=== PATIENT | female | born 1970 | race African-American/Black ===

== ENCOUNTER 2016-07-25 23:57 | Emergency (ER) | payer MEDICAID ==
[2016-07-26] MEDS ORDERED: AMIODARONE HCL INJ 150 MG/3 ML VIAL IV ONE ×2 (00:05→00:19)
[2016-07-26] MEDS ORDERED: LIDOCAINE 2% INJ-PF (100 MG/5 ML) SYRINGE ONE (00:13)
[2016-07-26] MEDS ORDERED: KETAMINE HCL INJ 500 MG/10 ML VIAL ONE ×2 (00:20→02:42)
[2016-07-26] MEDS ORDERED: PROPOFOL 100 ML IV ONE (00:29)
[2016-07-26 01:06] LABS: ABSOLUTE EOSINOPHILS # (AUTO) 0.2 10^3/uL (0.0-0.6); ABSOLUTE MONOCYTES (AUTO) 1.2 10^3/uL (0.1-1.4); ABSOLUTE NEUT (AUTO) 6.2 10^3/uL (1.7-8.2); BASOPHILS % (AUTO) 0.3 % (0-2); EOSINOPHILS % (AUTO) 1.3 % (0-6); HEMATOCRIT 40.3 % (36.0-47.0); HEMOGLOBIN 12.3 g/dL (12.0-15.5); HGB HCT DIFFERENCE -3.4; LYMPHOCYTES % (AUTO) 44.1 % (13-45); MEAN CORPUSCULAR HEMOGLOBIN 21.3 pg (27.0-33.4); MEAN CORPUSCULAR HGB CONC 30.6 g/dL (32.0-36.0); MEAN CORPUSCULAR VOLUME 70 fl (80-97); MONOCYTES % (AUTO) 8.9 % (3-13); RED BLOOD COUNT 5.77 10^6/uL (3.72-5.28); RED CELL DISTRIBUTION WIDTH 21.6 % (11.5-14.0); SEGMENTED NEUTROPHILS % (AUTO) 45.4 % (42-78); WHITE BLOOD COUNT 13.6 10^3/uL (4.0-10.5)
[2016-07-26 01:12] LABS: PROTHROMBIN TIME 30.9 SEC (11.4-15.4)
[2016-07-26 01:13] LABS: PARTIAL THROMBOPLASTIN TIME 47.1 SEC (23.5-35.8)
[2016-07-26 01:24] LABS: ALANINE AMINOTRANSFERASE 181 U/L (9-52); ALBUMIN 4.4 g/dL (3.5-5.0); ALKALINE PHOSPHATASE 186 U/L (38-126); ASPARTATE AMINO TRANSFERASE 367 U/L (14-36); BILIRUBIN,TOTAL 1.1 mg/dL (0.2-1.3); BLOOD UREA NITROGEN 10 mg/dL (7-20); CHLORIDE 109 mmol/L (98-107); CREATINE KINASE 103 U/L (30-135); CREATININE RESULT 0.98 mg/dL (0.52-1.25); GLUCOSE 343 mg/dL (75-110); TOTAL PROTEIN 8.3 g/dL (6.3-8.2)
--- NOTE | 2016-07-26 01:27 | ER Document Report ---
ED General - General Stated Complaint: RESPIRATORY DISTRESS Cannot obtain history due to: Unstable vital signs Notes: Patient is a 46-year-old female with a past history of CHF status post bed placement 2005 who presents with generalized fatigue, vomiting and diaphoresis. EMS noted patient to be in ventricular tachycardia and transported to the emergency department. No intervention was performed. At time of arrival patient is hemodynamically unstable and history is otherwise limited secondary to her unstable status. TRAVEL OUTSIDE OF THE [place] IN LAST 30 DAYS: No - Related Data Allergies/Adverse Reactions: amoxicillin [Amoxicillin] Allergy (Verified 09/15/15 22:08) Penicillins Allergy (Verified 09/15/15 22:08) Past Medical History - General Information source: Patient, Emergency Med Personnel - Social History Smoking Status: Never Smoker Frequency of alcohol use: None Drug Abuse: None Lives with: Family Family History: Reviewed & Not Pertinent - Past Medical History Cardiac Medical History: Reports: Hx Atrial Fibrillation, Hx Congestive Heart Failure, Hx Hypercholesterolemia Past Surgical History: Reports: Hx Abdominal Surgery - CHOLECYSTECTOMY, Hx Cardiac Surgery - LVAD, Hx Section, Hx Cholecystectomy, Hx Hysterectomy , Hx Internal Defibrillator - secondary to bradycardia, per patient., Hx Pacemaker - Immunizations Immunizations up to date: Yes Hx Diphtheria, Pertussis, Tetanus Vaccination: Yes Review of Systems - Review of Systems Notes: Constitutional: Negative for fever. Positive for fatigue HENT: Negative for sore throat. Eyes: Negative for visual changes. Cardiovascular: Negative for chest pain. Respiratory: Positive for shortness of breath. Gastrointestinal: Negative for abdominal pain, positive for nausea and vomiting Genitourinary: Negative for dysuria. Musculoskeletal: Negative for back pain. Skin: Negative for rash. Neurological: Negative for headaches, weakness or numbness. 10 point ROS negative except as marked above and in HPI. Physical Exam - Vital signs Vitals: Resp BP 30 H 127/108 H 07/26/16 01:36 07/26/16 01:36 Interpretation: Hypotensive, Tachycardic, Tachypneic Notes: PHYSICAL EXAMINATION: GENERAL: Obese, ill in appearance, diaphoretic HEAD: Atraumatic, normocephalic. EYES: Pupils equal round and reactive to light, extraocular movements intact, sclera anicteric, conjunctiva are normal. ENT: nares patent, oropharynx clear without exudates. Moderately dry mucous membranes. NECK: Normal range of motion, supple without lymphadenopathy LUNGS: Breath sounds clear to auscultation bilaterally and equal. No wheezes rales or rhonchi. HEART: VAD hum present. Regular tachycardia. 1+ radial pulses bilaterally ABDOMEN: Soft, nontender, normoactive bowel sounds. No guarding, no rebound. No masses appreciated. EXTREMITIES: Normal range of motion, no pitting or edema. No cyanosis. NEUROLOGICAL: No focal neurological deficits. Moves all extremities spontaneously and on command. PSYCH: Normal mood, normal affect. SKIN: Warm, diaphoretic, normal turgor, no rashes or lesions noted. Course - Re-evaluation Re-evalutation: 0005:Patient arrives in ventricular tachycardia with a left ventricular assist device. Initially patient appeared clinically acceptable without diaphoresis vomiting or altered mental status. Multiple attempts were made at establishing IV access as patient did not have asked the time of arrival. These were unsuccessful so a left humeral intraosseous line was placed. An amiodarone infusion was started after a 150 mg bolus. This is unsuccessful in cardioversion and patient proceeded to become more diaphoretic, have one episode of nonbilious, nonbloody vomitus and her repeat low pressures tipped into the low 60s. At this juncture ketamine was infused through the intraosseous line for procedural sedation for cardioversion. Despite a total of 425 mg of ketamine infused over 5 minutes, patient had minimal sedation despite excellent flush through the IO line with good bone marrow drawback. At this 0.80 mg of propofol were given and patient was noted to have acceptable level of sedation. She was cardioverted at 200 J synchronized with return to a normal sinus rhythm. Her blood pressure was initially in the 50s systolic via manual cuff with a Doppler but after approximately 3-5 minutes from cardioversion, patient return to a systolic of 118. After cardioversion she continued to be somewhat sedated and disassociated from the ketamine. 0040-I have spoken with the photovoltaic fabrication technician at [facility] and updated her on the care of this patient. We did speak prior to cardioversion but had to discontinue this conversation due to the increasing instability of the patient. The patient is now been accepted by Dr. Lala Roberson. Unfortunately we have no availability of critical care transport either via ground air at this time from multiple institutions including [facility]. No hospital within 2 hours deals with bad patient's so there is no other acceptable option other than [facility] or due both of which are almost 3 hours away by ground transport. We are continuing to search for options for emergent ground transport with any septal critical care truck as I do not believe it is safe to send the patient via a local EMS truck. 0120-patient is awake, talking, maintained hemodynamically stable at this time. Awaiting acceptable transportation. Repeat EKG does show a sinus tachycardia with wide QRS complex, wider than prior. Patient has no prior history of hyperkalemia and remains stable at this time 07/26/16 01:43 Potassium has returned and is very elevated at 6.6. This would explain the QRS widening as well as the ventricular tachycardia. Patient has been given 2 g of calcium gluconate. 10 units of IV insulin and 2 Amps of D50 will be administered 07/26/16 02:48 Patient's QRS complexes narrowed at this time, she remains hemodynamically stable. A dose of 40 mg of IV Lasix will also be given to help clear potassium from the system and I also believe this is appropriate given the patient has heart failure and did receive fluids by EMS as well as during her period of hypotension prior to arrival. She remains well in appearance at this time. It appears will not have transportation until approximately 8 AM this morning. 07/26/16 04:27 Patient appears clinically much improved at this time. No significant EKG changes after insulin, glucose, and calcium. Patient was also given Lasix. Uncertain if her initial QRS widening is secondary to hyperkalemia or is simply patient's new baseline. She continues to be stable at this time. Care transferred to Dr. Galvan. - Vital Signs Vital signs: Temp Pulse Resp BP Pulse Ox 14 117/95 H 100 07/26/16 03:36 07/26/16 03:36 07/26/16 03:36 - Laboratory Result Diagrams: 07/26/16 00:40 07/26/16 00:40 Laboratory results interpreted by me: 07/26/16 07/26/16 07/26/16 00:40 00:40 00:40 WBC 13.6 H RBC 5.77 H MCV 70 L MCH 21.3 L MCHC 30.6 L RDW 21.6 H Absolute Lymphocytes 6.0 H PT 30.9 H APTT 47.1 H Sodium 145.1 H Potassium 6.6 H* Chloride 109 H Carbon Dioxide 16 L Anion Gap 20 H Glucose 343 H POC Glucose AST 367 H ALT 181 H Alkaline Phosphatase 186 H Total Protein 8.3 H Urine Glucose (UA) Urine Blood 07/26/16 07/26/16 03:51 04:00 WBC RBC MCV MCH MCHC RDW Absolute Lymphocytes PT APTT Sodium Potassium Chloride Carbon Dioxide Anion Gap Glucose POC Glucose 294 H AST ALT Alkaline Phosphatase Total Protein Urine Glucose (UA) >=500 H Urine Blood SMALL H - Diagnostic Test Radiology reviewed: Image reviewed, Reports reviewed Radiology results interpreted by me: 07/26/16 02:49 Chest x-ray: Cardiomegaly with VAD placement - EKG Interpretation by Me Additional EKG results interpreted by me: 07/26/16 02:49 EKG 1: Ventricular tachycardia rate 164. EKG 2: Regular sinus tachycardia with a wide QRS complex. Critical Care Note - Critical Care Note Total time excluding time spent on procedures (mins): 85 Comments: Critical care time spent obtaining history from patient or surrogate, discussions with consultants, development of treatment plan with patient or surrogate, evaluation of patient's response to treatment, examination of patient , ordering and performing treatments and interventions, ordering and review of laboratory studies, re-evaluation of patient's condition, ordering and review of radiographic studies and review of old charts Discharge - Discharge Clinical Impression: Ventricular tachycardia, Cardiogenic shock, Hyperkalemia Condition: Fair Disposition: [facility]
[2016-07-26 01:33] LABS: CARBON DIOXIDE 16 mmol/L (22-30); SODIUM 145.1 mmol/L (137-145)
[2016-07-26 01:36] LABS: ANION GAP 20 (5-19); CREATINE KINASE MB 0.55 ng/mL (<4.55); TROPONIN I 0.017 ng/mL
[2016-07-26 01:39] LABS: POTASSIUM 6.6 mmol/L (3.6-5.0)
[2016-07-26] MEDS ORDERED: CALCIUM GLUCONATE 1000 MG/10 ML INJ IV ONE ×2 (01:41→01:44)
[2016-07-26] MEDS ORDERED: INSULIN REG, HUMAN 100 UNIT/ML 3 ML VIAL (PYX) IV ONE (01:41)
[2016-07-26] MEDS ORDERED: DEXTROSE 50%-WATER 25 GM/50 ML DISP.SYRIN IV ONE (01:42)
[2016-07-26] MEDS ORDERED: FUROSEMIDE INJ/PF 40 MG/4 ML SDV IV ONE (02:48)
[2016-07-26] MEDS ORDERED: LIDOCAINE 2% INJ-PF (100 MG/5 ML) SYRINGE IV ONE (03:15)
[2016-07-26 04:16] LABS: APPEARANCE,URINE CLEAR; BILIRUBIN,URINE NEGATIVE (NEGATIVE); GLUCOSE, URINE >=500 mg/dL (NEGATIVE); KETONES,URINE NEGATIVE (NEGATIVE); LEUKOCYTE ESTERASE,URINE NEGATIVE (NEGATIVE); NITRITE,URINE NEGATIVE (NEGATIVE); PROTEIN,URINE NEGATIVE (NEGATIVE); URINE SPECIFIC GRAVITY 1.009; UROBILINOGEN,URINE NEGATIVE mg/dL (<2.0)
--- NOTE | 2016-07-26 05:29 | ER Document Report ---
Doctor's Note Notes: 07/26/16 05:28 A serum care patient pending transportation from Dr. Richard introduced myself to the patient at the bedside she is awake alert stable vital signs. Chest if she could have something for pain she describes a pain when I touch her chest she was shocked with electricity sore throat that's appropriate. He denies any shortness of breath. im going to Give her some fentanyl.
[2016-07-26] MEDS ORDERED: FENTANYL CITRATE INJ/PF 100 MCG/2 ML AMPUL ONE (05:32)
[2016-07-26 08:31] VITALS: BP 84/73
[2016-07-26 08:59] LABS: BLOOD UREA NITROGEN 11 mg/dL (7-20); CALCIUM 11.3 mg/dL (8.4-10.2); CHLORIDE 99 mmol/L (98-107); GLUCOSE 246 mg/dL (75-110); SODIUM 138.9 mmol/L (137-145)
[2016-07-26 09:09] LABS: ANION GAP 15 (5-19)
[2016-07-26 09:11] LABS: CARBON DIOXIDE 25 mmol/L (22-30); POTASSIUM 5.3 mmol/L (3.6-5.0)
--- NOTE | 2016-07-26 15:57 | EKG REPORT ---
SEVERITY:- ABNORMAL ECG - SINUS TACHYCARDIA WITH FREQUENT APCs PROBABLE LEFT ATRIAL ABNORMALITY NONSPECIFIC INTRAVENTRICULAR CONDUCTION DELAY : Confirmed by: Alessandra Gutiérrez 26-Jul-2016 15:57:28
--- NOTE | 2016-07-26 15:58 | EKG REPORT ---
SEVERITY:- ABNORMAL ECG - ATRIAL FIBRILLATION NONSPECIFIC INTRAVENTRICULAR CONDUCTION DELAY MINIMAL ST DEPRESSION, INFERIOR LEADS : Confirmed by: Alessandra Gutiérrez 26-Jul-2016 15:57:38
--- NOTE | 2016-07-26 16:00 | EKG REPORT ---
SEVERITY:- ABNORMAL ECG - VENTRICULAR FIBRILLATION/FLUTTER/ POLYMORPHIC VT MULTIFORM VENTRICULAR PREMATURE COMPLEXES RIGHT BUNDLE BRANCH BLOCK : Confirmed by: Alessandra Gutiérrez 26-Jul-2016 15:59:43
== END 2016-07-26 08:45 | disposition short-term general hospital (02) ==
LOC: ER 23:57
DX: I47.2 Ventricular tachycardia (principal); E87.5 Hyperkalemia; I50.9 Heart failure, unspecified; R57.0 Cardiogenic shock; I48.91 Unspecified atrial fibrillation; R53.83 Other fatigue; R11.10 Vomiting, unspecified; R61 Generalized hyperhidrosis; Z88.0 Allergy status to penicillin; Z95.810 Presence of automatic (implantable) cardiac defibrillator; Z95.811 Presence of heart assist device
CPT/HCPCS: 93005; 99291; 99292; 96374; 36415; 82553; 82962; 82550; 85025; 85610; 85730; 80048; 80053; 81001; 84484; 71010; 93010; 36680; J3490; J1815

== ENCOUNTER → 2016-08-04 | Outpatient (CLI) | payer MEDICAID ==
[2016-08-04 13:23] LABS: PROTHROMBIN TIME 22.4 SEC (11.4-15.4)
== END ==
LOC: OD 12:54
PROVIDERS: ATTEND Internal Medicine Advanced Heart Failure and Transplant Cardiology
DX: I50.9 Heart failure, unspecified (principal); Z79.01 Long term (current) use of anticoagulants; Z79.899 Other long term (current) drug therapy; Z95.811 Presence of heart assist device
CPT/HCPCS: 36415; 85610

== ENCOUNTER → 2016-08-16 | Outpatient (CLI) | payer MEDICAID ==
[2016-08-16 18:32] LABS: PROTHROMBIN TIME 20.4 SEC (11.4-15.4)
[2016-08-16 18:35] LABS: ANION GAP 14 (5-19); BLOOD UREA NITROGEN 9 mg/dL (7-20); CALCIUM 9.3 mg/dL (8.4-10.2); CARBON DIOXIDE 26 mmol/L (22-30); CHLORIDE 104 mmol/L (98-107); CREATININE RESULT 0.64 mg/dL (0.52-1.25); GLUCOSE 158 mg/dL (75-110)
== END ==
LOC: OD 17:41
PROVIDERS: ATTEND Internal Medicine Advanced Heart Failure and Transplant Cardiology
DX: Z79.01 Long term (current) use of anticoagulants (principal); Z79.899 Other long term (current) drug therapy; Z95.811 Presence of heart assist device
CPT/HCPCS: 36415; 80048; 85610

== ENCOUNTER → 2016-08-23 | Outpatient (CLI) | payer MEDICAID ==
[2016-08-23 15:02] LABS: PROTHROMBIN TIME 26.6 SEC (11.4-15.4)
[2016-08-23 15:18] LABS: ANION GAP 15 (5-19); BLOOD UREA NITROGEN 10 mg/dL (7-20); CALCIUM 9.6 mg/dL (8.4-10.2); CARBON DIOXIDE 27 mmol/L (22-30); CHLORIDE 100 mmol/L (98-107); CREATININE RESULT 0.72 mg/dL (0.52-1.25); GLUCOSE 158 mg/dL (75-110); POTASSIUM 4.2 mmol/L (3.6-5.0)
== END ==
LOC: OD 14:22
PROVIDERS: ATTEND Internal Medicine Advanced Heart Failure and Transplant Cardiology
DX: I50.9 Heart failure, unspecified (principal); Z79.01 Long term (current) use of anticoagulants; Z79.899 Other long term (current) drug therapy; Z95.811 Presence of heart assist device
CPT/HCPCS: 36415; 80048; 85610

== ENCOUNTER → 2016-09-12 | Outpatient (CLI) | payer MEDICAID ==
[2016-09-12 15:05] LABS: PROTHROMBIN TIME 26.9 SEC (11.4-15.4)
[2016-09-12 15:15] LABS: ANION GAP 13 (5-19); BLOOD UREA NITROGEN 10 mg/dL (7-20); CALCIUM 9.8 mg/dL (8.4-10.2); CARBON DIOXIDE 24 mmol/L (22-30); CHLORIDE 102 mmol/L (98-107); CREATININE RESULT 0.57 mg/dL (0.52-1.25); GLUCOSE 198 mg/dL (75-110); POTASSIUM 3.9 mmol/L (3.6-5.0)
== END ==
LOC: OD 13:58
PROVIDERS: ATTEND Internal Medicine Advanced Heart Failure and Transplant Cardiology
DX: I50.9 Heart failure, unspecified (principal); Z79.01 Long term (current) use of anticoagulants; Z79.899 Other long term (current) drug therapy; Z95.811 Presence of heart assist device
CPT/HCPCS: 36415; 80048; 85610

== ENCOUNTER → 2016-10-10 | Outpatient (CLI) | payer MEDICAID ==
[2016-10-10 14:03] LABS: PROTHROMBIN TIME 22.9 SEC (11.4-15.4)
== END ==
LOC: OD 13:25
PROVIDERS: ATTEND Internal Medicine Advanced Heart Failure and Transplant Cardiology
DX: I50.9 Heart failure, unspecified (principal); Z79.01 Long term (current) use of anticoagulants; Z79.899 Other long term (current) drug therapy; Z95.811 Presence of heart assist device
CPT/HCPCS: 36415; 80162; 85610

== ENCOUNTER → 2016-10-17 | Outpatient (CLI) | payer MEDICAID ==
[2016-10-17 17:17] LABS: PROTHROMBIN TIME 20.3 SEC (11.4-15.4)
== END ==
LOC: OD 16:33
PROVIDERS: ATTEND Internal Medicine Advanced Heart Failure and Transplant Cardiology
DX: I50.9 Heart failure, unspecified (principal); Z79.01 Long term (current) use of anticoagulants; Z79.899 Other long term (current) drug therapy; Z95.811 Presence of heart assist device
CPT/HCPCS: 36415; 85610

== ENCOUNTER → 2016-10-30 | Outpatient (CLI) | payer MEDICAID ==
[2016-10-30 17:14] LABS: PROTHROMBIN TIME 20.2 SEC (11.4-15.4)
== END ==
LOC: OD 16:32
PROVIDERS: ATTEND Internal Medicine Advanced Heart Failure and Transplant Cardiology
DX: Z79.01 Long term (current) use of anticoagulants (principal); I50.9 Heart failure, unspecified; Z79.899 Other long term (current) drug therapy
CPT/HCPCS: 36415; 83036; 85610

== ENCOUNTER → 2016-11-09 | Outpatient (CLI) | payer MEDICAID ==
[2016-11-09 16:02] LABS: PROTHROMBIN TIME 28.9 SEC (11.4-15.4)
== END ==
LOC: OD 15:13
PROVIDERS: ATTEND Internal Medicine Advanced Heart Failure and Transplant Cardiology
DX: I50.9 Heart failure, unspecified (principal); Z79.01 Long term (current) use of anticoagulants; Z79.899 Other long term (current) drug therapy
CPT/HCPCS: 36415; 85610

== ENCOUNTER → 2016-12-01 | Outpatient (CLI) | payer MEDICAID ==
[2016-12-01 12:20] LABS: HEMATOCRIT 37.5 % (36.0-47.0); HEMOGLOBIN 11.7 g/dL (12.0-15.5); HGB HCT DIFFERENCE -2.4; MEAN CORPUSCULAR HEMOGLOBIN 21.8 pg (27.0-33.4); MEAN CORPUSCULAR HGB CONC 31.3 g/dL (32.0-36.0); MEAN CORPUSCULAR VOLUME 70 fl (80-97); RED BLOOD COUNT 5.38 10^6/uL (3.72-5.28); RED CELL DISTRIBUTION WIDTH 22.4 % (11.5-14.0); WHITE BLOOD COUNT 7.1 10^3/uL (4.0-10.5)
[2016-12-01 12:31] LABS: ANION GAP 15 (5-19); BLOOD UREA NITROGEN 9 mg/dL (7-20); CALCIUM 9.7 mg/dL (8.4-10.2); CARBON DIOXIDE 26 mmol/L (22-30); CHLORIDE 98 mmol/L (98-107); CREATININE RESULT 0.59 mg/dL (0.52-1.25); GLUCOSE 167 mg/dL (75-110); POTASSIUM 3.7 mmol/L (3.6-5.0); SODIUM 139.2 mmol/L (137-145)
== END ==
LOC: OD 11:19
PROVIDERS: ATTEND Internal Medicine Advanced Heart Failure and Transplant Cardiology
DX: I50.9 Heart failure, unspecified (principal); Z79.01 Long term (current) use of anticoagulants; Z79.899 Other long term (current) drug therapy; Z95.811 Presence of heart assist device
CPT/HCPCS: 36415; 80048; 85027; 85610

== ENCOUNTER → 2016-12-19 | Outpatient (CLI) | payer MEDICAID ==
[2016-12-19 17:26] LABS: PROTHROMBIN TIME 18.7 SEC (11.4-15.4)
[2016-12-19 17:42] LABS: ANION GAP 10 (5-19); BLOOD UREA NITROGEN 8 mg/dL (7-20); CALCIUM 9.6 mg/dL (8.4-10.2); CARBON DIOXIDE 29 mmol/L (22-30); CHLORIDE 99 mmol/L (98-107); CREATININE RESULT 0.59 mg/dL (0.52-1.25); GLUCOSE 240 mg/dL (75-110); POTASSIUM 5.2 mmol/L (3.6-5.0); SODIUM 137.6 mmol/L (137-145)
== END ==
LOC: OD 16:35
PROVIDERS: ATTEND Internal Medicine Advanced Heart Failure and Transplant Cardiology
DX: I50.9 Heart failure, unspecified (principal); Z79.01 Long term (current) use of anticoagulants; Z79.899 Other long term (current) drug therapy; Z95.811 Presence of heart assist device
CPT/HCPCS: 36415; 80048; 85610

== ENCOUNTER → 2017-01-10 | Outpatient (CLI) | payer MEDICAID ==
[2017-01-10 16:08] LABS: HEMATOCRIT 39.6 % (36.0-47.0); HEMOGLOBIN 12.3 g/dL (12.0-15.5); HGB HCT DIFFERENCE -2.7; MEAN CORPUSCULAR HGB CONC 31.2 g/dL (32.0-36.0); MEAN CORPUSCULAR VOLUME 71 fl (80-97); RED BLOOD COUNT 5.62 10^6/uL (3.72-5.28); RED CELL DISTRIBUTION WIDTH 22.3 % (11.5-14.0)
[2017-01-10 16:22] LABS: PROTHROMBIN TIME 23.4 SEC (11.4-15.4)
[2017-01-10 16:29] LABS: ANION GAP 14 (5-19); BLOOD UREA NITROGEN 12 mg/dL (7-20); CALCIUM 9.7 mg/dL (8.4-10.2); CARBON DIOXIDE 27 mmol/L (22-30); CHLORIDE 98 mmol/L (98-107); CREATININE RESULT 0.71 mg/dL (0.52-1.25); GLUCOSE 214 mg/dL (75-110); POTASSIUM 4.3 mmol/L (3.6-5.0)
== END ==
LOC: OD 15:28
PROVIDERS: ATTEND Internal Medicine Advanced Heart Failure and Transplant Cardiology
DX: I50.9 Heart failure, unspecified (principal); Z79.01 Long term (current) use of anticoagulants; Z79.899 Other long term (current) drug therapy; Z95.811 Presence of heart assist device
CPT/HCPCS: 36415; 80048; 85027; 85610

== ENCOUNTER → 2017-01-29 | Outpatient (CLI) | payer MEDICAID ==
[2017-01-29 08:57] LABS: PROTHROMBIN TIME 22.1 SEC (11.4-15.4)
== END ==
LOC: OD 08:19
PROVIDERS: ATTEND Internal Medicine Advanced Heart Failure and Transplant Cardiology
DX: I50.9 Heart failure, unspecified (principal); Z79.01 Long term (current) use of anticoagulants; Z79.899 Other long term (current) drug therapy; Z95.811 Presence of heart assist device
CPT/HCPCS: 36415; 85610

== ENCOUNTER → 2017-02-12 | Outpatient (CLI) | payer MEDICAID | LOC: OD 16:39 | PROVIDERS: ATTEND Internal Medicine Advanced Heart Failure and Transplant Cardiology | DX: I50.9 Heart failure, unspecified (principal); Z79.01 Long term (current) use of anticoagulants; Z79.899 Other long term (current) drug therapy; Z95.811 Presence of heart assist device | CPT/HCPCS: 36415; 85610 ==

== ENCOUNTER → 2017-03-02 | Outpatient (CLI) | payer MEDICAID ==
[2017-03-02 12:42] LABS: PROTHROMBIN TIME 19.3 SEC (11.4-15.4)
[2017-03-02 12:53] LABS: ANION GAP 10 (5-19); BLOOD UREA NITROGEN 8 mg/dL (7-20); CALCIUM 9.2 mg/dL (8.4-10.2); CARBON DIOXIDE 22 mmol/L (22-30); CHLORIDE 102 mmol/L (98-107); CREATININE RESULT 0.52 mg/dL (0.52-1.25); GLUCOSE 203 mg/dL (75-110); POTASSIUM 3.8 mmol/L (3.6-5.0); SODIUM 134.2 mmol/L (137-145)
== END ==
LOC: OD 11:41
PROVIDERS: ATTEND Internal Medicine Advanced Heart Failure and Transplant Cardiology
DX: I50.9 Heart failure, unspecified (principal); Z79.01 Long term (current) use of anticoagulants; Z79.899 Other long term (current) drug therapy; Z95.811 Presence of heart assist device
CPT/HCPCS: 36415; 80048; 85610

== ENCOUNTER → 2017-03-07 | Outpatient (CLI) | payer MEDICAID ==
[2017-03-07 08:51] LABS: HEMATOCRIT 35.3 % (36.0-47.0); HEMOGLOBIN 11.2 g/dL (12.0-15.5); HGB HCT DIFFERENCE -1.7; MEAN CORPUSCULAR HEMOGLOBIN 23.7 pg (27.0-33.4); MEAN CORPUSCULAR HGB CONC 31.8 g/dL (32.0-36.0); MEAN CORPUSCULAR VOLUME 75 fl (80-97); RED BLOOD COUNT 4.73 10^6/uL (3.72-5.28); RED CELL DISTRIBUTION WIDTH 22.2 % (11.5-14.0); WHITE BLOOD COUNT 6.7 10^3/uL (4.0-10.5)
[2017-03-07 09:00] LABS: PROTHROMBIN TIME 25.2 SEC (11.4-15.4)
== END ==
LOC: OD 08:20
PROVIDERS: ATTEND Internal Medicine Advanced Heart Failure and Transplant Cardiology
DX: I50.9 Heart failure, unspecified (principal); Z79.01 Long term (current) use of anticoagulants; Z79.899 Other long term (current) drug therapy; Z95.811 Presence of heart assist device
CPT/HCPCS: 36415; 85027; 85610

== ENCOUNTER → 2017-03-21 | Outpatient (CLI) | payer MEDICAID ==
[2017-03-21 11:40] LABS: PROTHROMBIN TIME 37.7 SEC (11.4-15.4)
[2017-03-21 11:53] LABS: ANION GAP 14 (5-19); BLOOD UREA NITROGEN 11 mg/dL (7-20); CALCIUM 9.7 mg/dL (8.4-10.2); CARBON DIOXIDE 22 mmol/L (22-30); CHLORIDE 105 mmol/L (98-107); CREATININE RESULT 0.65 mg/dL (0.52-1.25); GLUCOSE 167 mg/dL (75-110); SODIUM 141.4 mmol/L (137-145)
== END ==
LOC: OD 10:51
PROVIDERS: ATTEND Internal Medicine Advanced Heart Failure and Transplant Cardiology
DX: I50.9 Heart failure, unspecified (principal); Z79.01 Long term (current) use of anticoagulants; Z79.899 Other long term (current) drug therapy; Z95.811 Presence of heart assist device
CPT/HCPCS: 36415; 80048; 85610

== ENCOUNTER → 2017-03-27 | Outpatient (CLI) | payer MEDICAID ==
[2017-03-27 09:26] LABS: PROTHROMBIN TIME 30.4 SEC (11.4-15.4)
== END ==
LOC: OD 08:36
PROVIDERS: ATTEND Internal Medicine Advanced Heart Failure and Transplant Cardiology
DX: I50.9 Heart failure, unspecified (principal); Z79.01 Long term (current) use of anticoagulants; Z79.899 Other long term (current) drug therapy; Z95.811 Presence of heart assist device
CPT/HCPCS: 36415; 85610

== ENCOUNTER → 2017-04-16 | Outpatient (CLI) | payer MEDICAID ==
[2017-04-16 15:37] LABS: HEMATOCRIT 39.4 % (36.0-47.0); HEMOGLOBIN 12.8 g/dL (12.0-15.5); MEAN CORPUSCULAR HEMOGLOBIN 23.7 pg (27.0-33.4); MEAN CORPUSCULAR HGB CONC 32.6 g/dL (32.0-36.0); MEAN CORPUSCULAR VOLUME 73 fl (80-97); RED BLOOD COUNT 5.42 10^6/uL (3.72-5.28); RED CELL DISTRIBUTION WIDTH 20.5 % (11.5-14.0); WHITE BLOOD COUNT 5.5 10^3/uL (4.0-10.5)
[2017-04-16 15:45] LABS: PROTHROMBIN TIME 31.3 SEC (11.4-15.4)
[2017-04-16 15:59] LABS: ANION GAP 17 (5-19); BLOOD UREA NITROGEN 12 mg/dL (7-20); CALCIUM 8.9 mg/dL (8.4-10.2); CARBON DIOXIDE 19 mmol/L (22-30); CHLORIDE 102 mmol/L (98-107); CREATININE RESULT 0.55 mg/dL (0.52-1.25); GLUCOSE 174 mg/dL (75-110); POTASSIUM 3.9 mmol/L (3.6-5.0); SODIUM 137.5 mmol/L (137-145)
== END ==
LOC: OD 15:05
PROVIDERS: ATTEND Internal Medicine Advanced Heart Failure and Transplant Cardiology
DX: I50.9 Heart failure, unspecified (principal); Z79.01 Long term (current) use of anticoagulants; Z79.899 Other long term (current) drug therapy; Z95.811 Presence of heart assist device
CPT/HCPCS: 36415; 80048; 85027; 85610

== ENCOUNTER → 2017-05-02 | Outpatient (CLI) | payer MEDICAID ==
[2017-05-02 10:22] LABS: PROTHROMBIN TIME 32.3 SEC (11.4-15.4)
[2017-05-02 10:49] LABS: ANION GAP 14 (5-19); BLOOD UREA NITROGEN 9 mg/dL (7-20); CALCIUM 9.2 mg/dL (8.4-10.2); CARBON DIOXIDE 26 mmol/L (22-30); CHLORIDE 104 mmol/L (98-107); CREATININE RESULT 0.62 mg/dL (0.52-1.25); DIGOXIN 0.45 ng/mL (0.8-2.0); GLUCOSE 186 mg/dL (75-110); LDH 789 U/L (313-618); POTASSIUM 3.8 mmol/L (3.6-5.0)
== END ==
LOC: OD 09:41
PROVIDERS: ATTEND Internal Medicine Advanced Heart Failure and Transplant Cardiology
DX: I50.9 Heart failure, unspecified (principal); Z79.01 Long term (current) use of anticoagulants; Z79.899 Other long term (current) drug therapy; Z95.811 Presence of heart assist device
CPT/HCPCS: 36415; 80048; 80162; 83615; 85610

== ENCOUNTER → 2017-05-21 | Outpatient (CLI) | payer MEDICAID ==
[2017-05-21 13:33] LABS: PROTHROMBIN TIME 25.8 SEC (11.4-15.4)
== END ==
LOC: OD 12:44
PROVIDERS: ATTEND Internal Medicine Advanced Heart Failure and Transplant Cardiology
DX: I50.9 Heart failure, unspecified (principal); Z79.01 Long term (current) use of anticoagulants; Z79.899 Other long term (current) drug therapy; Z95.811 Presence of heart assist device
CPT/HCPCS: 36415; 85610

== ENCOUNTER 2017-06-17 11:03 | Emergency (ER) | payer MEDICAID ==
[2017-06-17 11:46] LABS: ABSOLUTE BASOPHILS # (AUTO) 0.1 10^3/uL (0.0-0.2); ABSOLUTE EOSINOPHILS # (AUTO) 0.2 10^3/uL (0.0-0.6); ABSOLUTE LYMPHOCYTES (AUTO) 4.2 10^3/uL (0.5-4.7); ABSOLUTE MONOCYTES (AUTO) 0.7 10^3/uL (0.1-1.4); ABSOLUTE NEUT (AUTO) 4.1 10^3/uL (1.7-8.2); BASOPHILS % (AUTO) 0.9 % (0-2); EOSINOPHILS % (AUTO) 1.7 % (0-6); HEMATOCRIT 39.1 % (36.0-47.0); HGB HCT DIFFERENCE -0.1; LYMPHOCYTES % (AUTO) 45.7 % (13-45); MEAN CORPUSCULAR HEMOGLOBIN 25.3 pg (27.0-33.4); MEAN CORPUSCULAR HGB CONC 33.4 g/dL (32.0-36.0); MEAN CORPUSCULAR VOLUME 76 fl (80-97); MONOCYTES % (AUTO) 7.3 % (3-13); RED BLOOD COUNT 5.17 10^6/uL (3.72-5.28); RED CELL DISTRIBUTION WIDTH 21.3 % (11.5-14.0); SEGMENTED NEUTROPHILS % (AUTO) 44.4 % (42-78); WHITE BLOOD COUNT 9.2 10^3/uL (4.0-10.5)
[2017-06-17 11:50] LABS: PROTHROMBIN TIME 19.4 SEC (11.4-15.4)
[2017-06-17 11:51] LABS: PARTIAL THROMBOPLASTIN TIME 37.6 SEC (23.5-35.8)
[2017-06-17 12:05] LABS: ALANINE AMINOTRANSFERASE 37 U/L (9-52); ALBUMIN 4.5 g/dL (3.5-5.0); ALKALINE PHOSPHATASE 167 U/L (38-126); ANION GAP 16 (5-19); ASPARTATE AMINO TRANSFERASE 35 U/L (14-36); BILIRUBIN,DIRECT 0.4 mg/dL (0.0-0.4); BILIRUBIN,TOTAL 0.9 mg/dL (0.2-1.3); BLOOD UREA NITROGEN 15 mg/dL (7-20); CALCIUM 9.6 mg/dL (8.4-10.2); CARBON DIOXIDE 22 mmol/L (22-30); CHLORIDE 102 mmol/L (98-107); CREATINE KINASE 90 U/L (30-135); CREATININE RESULT 0.75 mg/dL (0.52-1.25); GLUCOSE 247 mg/dL (75-110); POTASSIUM 3.7 mmol/L (3.6-5.0); SODIUM 139.8 mmol/L (137-145); TOTAL PROTEIN 8.3 g/dL (6.3-8.2)
[2017-06-17 12:06] LABS: DIGOXIN < 0.40 ng/mL (0.8-2.0)
[2017-06-17 12:15] LABS: CREATINE KINASE MB 0.58 ng/mL (<4.55); TROPONIN I 0.019 ng/mL
[2017-06-17] MEDS ORDERED: DIGOXIN INJ 0.5 MG/2 ML AMPULE IV ONE (12:36)
--- NOTE | 2017-06-17 12:58 | RADIOLOGY REPORT (SQ) ---
EXAM DESCRIPTION: CHEST SINGLE VIEW COMPLETED DATE/TIME: 06/17/2017 12:40 pm REASON FOR STUDY: lvad sob COMPARISON: Chest films 08/26/2015, 11/12/2015, 11/13/2015, 07/26/2016 EXAM PARAMETERS: NUMBER OF VIEWS: One view. TECHNIQUE: Single frontal radiographic view of the chest acquired. RADIATION DOSE: NA LIMITATIONS: None. FINDINGS: LUNGS AND PLEURA: No opacities, masses or pneumothorax. No pleural effusion. MEDIASTINUM AND HILAR STRUCTURES: No masses. Contour normal. HEART AND VASCULAR STRUCTURES: Stable marked cardiomegaly with left ventricular outflow assist device . Old sternotomy and CABG. BONES: No acute findings. HARDWARE: Left ventricular assist device. Left-sided pacemaker OTHER: No other significant finding. IMPRESSION: Stable cardiomegaly and hardware. No acute infiltrates TECHNICAL DOCUMENTATION: JOB ID: [id number] [employer]- All Rights Reserved
[2017-06-17] MEDS ORDERED: AMIODARONE HCL 200 MG TABLET PO ONE (13:01)
--- NOTE | 2017-06-17 14:17 | ER Document Report ---
ED General - General Chief Complaint: Palpitations Stated Complaint: CHEST PAIN Time Seen by Provider: 06/17/17 11:18 TRAVEL OUTSIDE OF THE [place] IN LAST 30 DAYS: No - HPI Patient complains to provider of: Chest pain palpitations Notes: Patient coming in for evaluation chest pain palpitations. Patient has an LVAD. Patient was found to be tachycardic upon EMS arrival. Otherwise patient upon arrival he was found to be in V. tach with a rate around 220. Patient states felt lightheaded with some tightness in her chest. States compliance with her medications. Patient also does have a pacemaker defibrillator. Denies firing of the pacemaker defibrillator. Denies any recent travel. Denies any fevers chills nausea vomiting diarrhea. Patient is resting comfortably upon my evaluation. - Related Data Allergies/Adverse Reactions: amoxicillin [Amoxicillin] Allergy (Verified 07/26/16 08:00) Penicillins Allergy (Verified 07/26/16 08:00) Home Medications: Current Home Medications Digoxin 1 tab PO DAILY 06/17/17 [History] Glipizide 1 tab PO BID 06/17/17 [History] Losartan Potassium 1 tab PO DAILY 06/17/17 [History] Omeprazole 1 tab PO DAILY 06/17/17 [History] Sertraline HCl 1 tab PO DAILY 06/17/17 [History] Past Medical History - Social History Smoking Status: Never Smoker Chew tobacco use (# tins/day): No Drug Abuse: None Family History: Reviewed & Not Pertinent Patient has suicidal ideation: No Patient has homicidal ideation: No - Past Medical History Cardiac Medical History: Reports: Hx Atrial Fibrillation, Hx Congestive Heart Failure, Hx Hypercholesterolemia Renal/ Medical History: Denies: Hx Peritoneal Dialysis Past Surgical History: Reports: Hx Abdominal Surgery - CHOLECYSTECTOMY, Hx Cardiac Surgery - LVAD, Hx Section, Hx Cholecystectomy, Hx Hysterectomy , Hx Internal Defibrillator - secondary to bradycardia, per patient., Hx Pacemaker - Immunizations Immunizations up to date: Yes Hx Diphtheria, Pertussis, Tetanus Vaccination: Yes Review of Systems - Review of Systems Constitutional: No symptoms reported EENT: No symptoms reported Cardiovascular: Chest pain, Palpitations Respiratory: No symptoms reported Gastrointestinal: No symptoms reported Genitourinary: No symptoms reported Female Genitourinary: No symptoms reported Musculoskeletal: No symptoms reported Skin: No symptoms reported Hematologic/Lymphatic: No symptoms reported Neurological/Psychological: No symptoms reported -: Yes All other systems reviewed and negative Physical Exam - Vital signs Vitals: Resp Pulse Ox 25 H 97 06/17/17 11:11 06/17/17 11:11 Interpretation: Tachycardic - General General appearance: Appears well, Alert - HEENT Head: Normocephalic, Atraumatic Eyes: Normal Pupils: PERRL - Respiratory Respiratory status: No respiratory distress Chest status: Nontender Breath sounds: Normal Chest palpation: Normal - Cardiovascular Rhythm: Other - Mechanical Heart sounds: Normal auscultation Murmur: No - Abdominal Inspection: Normal Distension: No distension Bowel sounds: Normal Tenderness: Nontender Organomegaly: No organomegaly Notes: LVAD device and support devices are seen and there is no signs of any infection. - Back Back: Normal, Nontender - Extremities General upper extremity: Normal inspection, Nontender, Normal color, Normal ROM , Normal temperature General lower extremity: Normal inspection, Nontender, Normal color, Normal ROM , Normal temperature, Normal weight bearing. No: Nadia's sign - Neurological Neuro grossly intact: Yes Cognition: Normal Orientation: AAOx4 Jose Coma Scale Eye Opening: Spontaneous [place] Coma Scale Verbal: Oriented Jose Coma Scale Motor: Obeys Commands Jose Coma Scale Total: 15 Speech: Normal Motor strength normal: LUE, RUE, LLE, RLE Sensory: Normal - Psychological Associated symptoms: Normal affect, Normal mood - Skin Skin Temperature: Warm Skin Moisture: Dry Skin Color: Normal Course - Re-evaluation Re-evalutation: 06/17/17 14:15 Patient spontaneously converted from ventricular tachycardia to A. fib a flutter. Patient's heart rate remained tachycardic approximately 120-130. Otherwise patient symptoms improved has severe converting from ventricular tachycardia. Lab work shows nondetectable dig also has subtherapeutic INR. Discussion with [facility] and the transfer team Dr. Blankenship. Will transfer the patient to [facility] for her LVAD care. Patient will also be given a small dose of IV digoxin and 400 mg of p.o. amiodarone per [facility]. Otherwise patient looks to be no obvious distress currently waiting for transfer. - Vital Signs Vital signs: Temp Pulse Resp BP Pulse Ox 97.7 F 113 H 25 H 102/74 97 06/17/17 11:15 06/17/17 11:15 06/17/17 13:03 06/17/17 13:03 06/17/17 13:03 - Laboratory Result Diagrams: 06/17/17 11:24 06/17/17 11:24 Laboratory results interpreted by me: 06/17/17 06/17/17 06/17/17 11:24 11:24 11:24 MCV 76 L MCH 25.3 L RDW 21.3 H Lymphocytes % 45.7 H PT 19.4 H APTT 37.6 H Glucose 247 H Magnesium Alkaline Phosphatase 167 H Total Protein 8.3 H Digoxin < 0.40 L 06/17/17 11:24 MCV MCH RDW Lymphocytes % PT APTT Glucose Magnesium 1.5 L Alkaline Phosphatase Total Protein Digoxin Critical Care Note - Critical Care Note Total time excluding time spent on procedures (mins): 35 Comments: Multiple evaluations for nonsustained V. tach multiple discussions with LVAD team. Discharge - Discharge Clinical Impression: Nonsustained ventricular tachycardia, LVAD (left ventricular assist device) present Atrial fibrillation Qualifiers: Atrial fibrillation type: unspecified Qualified Code(s): I48.91 - Unspecified atrial fibrillation Disposition: [place] Referrals: KAREN LAWSON MD [Primary Care Provider] - Follow up as needed
[2017-06-17 15:46] VITALS: BP 46/20
--- NOTE | 2017-06-18 06:06 | EKG REPORT ---
SEVERITY:- ABNORMAL ECG - A-FLUTTER W/ PREDOM 2:1 AV BLOCK, A-RATE 238 NONSPECIFIC IVCD WITH LAD LEFT VENTRICULAR HYPERTROPHY : Confirmed by: Edwina Guadarrama MD 18-Jun-2017 06:05:29
--- NOTE | 2017-06-18 06:06 | EKG REPORT ---
SEVERITY:- ABNORMAL ECG - EXTREME TACHYCARDIA WITH WIDE COMPLEX, NO FURTHER RHYTHM ANALYSIS ATTEMPTED VENTRICULAR TACHYCARDIA : Confirmed by: Edwina Guadarrama MD 18-Jun-2017 06:06:24
== END 2017-06-17 16:15 | disposition short-term general hospital (02) ==
LOC: ER 11:03
DX: I47.2 Ventricular tachycardia (principal); I48.91 Unspecified atrial fibrillation; R07.9 Chest pain, unspecified; I50.9 Heart failure, unspecified; E78.00 Pure hypercholesterolemia, unspecified; Z88.0 Allergy status to penicillin; Z95.810 Presence of automatic (implantable) cardiac defibrillator; Z90.49 Acquired absence of other specified parts of digestive tract; Z90.710 Acquired absence of both cervix and uterus
CPT/HCPCS: 93005; 99291; 96374; 36415; 82553; 82550; 80162; 83615; 83735; 85025; 85610; 85730; 80053; 84484; 71010; 93010; J1160

== ENCOUNTER → 2017-06-22 | Outpatient (CLI) | payer MEDICAID ==
[2017-06-22 12:32] LABS: PROTHROMBIN TIME 21.9 SEC (11.4-15.4)
== END ==
LOC: OD 11:56
PROVIDERS: ATTEND Internal Medicine Advanced Heart Failure and Transplant Cardiology
DX: I50.9 Heart failure, unspecified (principal); Z79.01 Long term (current) use of anticoagulants; Z79.899 Other long term (current) drug therapy; Z95.811 Presence of heart assist device
CPT/HCPCS: 36415; 85610

== ENCOUNTER → 2017-07-03 | Outpatient (CLI) | payer MEDICAID ==
[2017-07-03 11:01] LABS: PROTHROMBIN TIME 19.6 SEC (11.4-15.4)
[2017-07-03 11:14] LABS: ANION GAP 12 (5-19); BLOOD UREA NITROGEN 8 mg/dL (7-20); CALCIUM 9.9 mg/dL (8.4-10.2); CARBON DIOXIDE 27 mmol/L (22-30); CHLORIDE 100 mmol/L (98-107); CREATININE RESULT 0.62 mg/dL (0.52-1.25); GLUCOSE 145 mg/dL (75-110); POTASSIUM 4.2 mmol/L (3.6-5.0); SODIUM 139.1 mmol/L (137-145)
== END ==
LOC: OD 09:53
PROVIDERS: ATTEND Internal Medicine Advanced Heart Failure and Transplant Cardiology
DX: I50.9 Heart failure, unspecified (principal); Z79.01 Long term (current) use of anticoagulants; Z79.899 Other long term (current) drug therapy; Z95.811 Presence of heart assist device
CPT/HCPCS: 36415; 80048; 85610

== ENCOUNTER → 2017-07-12 | Outpatient (CLI) | payer MEDICAID ==
[2017-07-12 18:23] LABS: PROTHROMBIN TIME 23.8 SEC (11.4-15.4)
== END ==
LOC: OD 16:47
PROVIDERS: ATTEND Internal Medicine Advanced Heart Failure and Transplant Cardiology
DX: I50.9 Heart failure, unspecified (principal); Z79.01 Long term (current) use of anticoagulants; Z79.899 Other long term (current) drug therapy; Z95.811 Presence of heart assist device
CPT/HCPCS: 36415; 85610

== ENCOUNTER → 2017-08-14 | Outpatient (CLI) | payer MEDICAID ==
[2017-08-14 09:24] LABS: HEMATOCRIT 40.6 % (36.0-47.0); HEMOGLOBIN 12.9 g/dL (12.0-15.5); MEAN CORPUSCULAR HEMOGLOBIN 24.3 pg (27.0-33.4); MEAN CORPUSCULAR HGB CONC 31.9 g/dL (32.0-36.0); MEAN CORPUSCULAR VOLUME 76 fl (80-97); PLATELET COUNT 238 10^3/uL (150-450); RED BLOOD COUNT 5.33 10^6/uL (3.72-5.28); RED CELL DISTRIBUTION WIDTH 19.9 % (11.5-14.0); WHITE BLOOD COUNT 9.6 10^3/uL (4.0-10.5)
[2017-08-14 09:26] LABS: INTERNATIONAL RATION (INR) 1.48; PROTHROMBIN TIME 18.8 SEC (11.4-15.4)
[2017-08-14 09:36] LABS: ANION GAP 14 (5-19); BLOOD UREA NITROGEN 16 mg/dL (7-20); CALCIUM 10.1 mg/dL (8.4-10.2); CARBON DIOXIDE 24 mmol/L (22-30); CHLORIDE 100 mmol/L (98-107); GLUCOSE 191 mg/dL (75-110); POTASSIUM 4.1 mmol/L (3.6-5.0); SODIUM 138.1 mmol/L (137-145)
== END ==
LOC: OD 08:38
PROVIDERS: ATTEND Internal Medicine Advanced Heart Failure and Transplant Cardiology
DX: I50.9 Heart failure, unspecified (principal); Z79.01 Long term (current) use of anticoagulants; Z79.899 Other long term (current) drug therapy; Z95.811 Presence of heart assist device
CPT/HCPCS: 36415; 80048; 85027; 85610

== ENCOUNTER → 2017-08-22 | Outpatient (CLI) | payer MEDICAID ==
[2017-08-22 07:54] LABS: INTERNATIONAL RATION (INR) 2.86; PROTHROMBIN TIME 31.4 SEC (11.4-15.4)
[2017-08-22 07:57] LABS: ALANINE AMINOTRANSFERASE 54 U/L (9-52); ALBUMIN 4.5 g/dL (3.5-5.0); ALKALINE PHOSPHATASE 142 U/L (38-126); ANION GAP 10 (5-19); ASPARTATE AMINO TRANSFERASE 38 U/L (14-36); BILIRUBIN,DIRECT 0.2 mg/dL (0.0-0.4); BILIRUBIN,TOTAL 0.5 mg/dL (0.2-1.3); BLOOD UREA NITROGEN 9 mg/dL (7-20); CALCIUM 9.7 mg/dL (8.4-10.2); CARBON DIOXIDE 28 mmol/L (22-30); CHLORIDE 100 mmol/L (98-107); GLUCOSE 201 mg/dL (75-110); POTASSIUM 3.6 mmol/L (3.6-5.0); SODIUM 137.9 mmol/L (137-145); TOTAL PROTEIN 7.9 g/dL (6.3-8.2)
== END ==
LOC: OD 07:11
PROVIDERS: ATTEND Internal Medicine Advanced Heart Failure and Transplant Cardiology
DX: I50.9 Heart failure, unspecified (principal); Z79.01 Long term (current) use of anticoagulants; Z79.899 Other long term (current) drug therapy; Z95.811 Presence of heart assist device
CPT/HCPCS: 36415; 80053; 85610

== ENCOUNTER → 2017-09-05 | Outpatient (CLI) | payer MEDICAID ==
[2017-09-05 08:03] LABS: HEMATOCRIT 39.5 % (36.0-47.0); HEMOGLOBIN 12.9 g/dL (12.0-15.5); MEAN CORPUSCULAR HEMOGLOBIN 24.7 pg (27.0-33.4); MEAN CORPUSCULAR HGB CONC 32.6 g/dL (32.0-36.0); MEAN CORPUSCULAR VOLUME 76 fl (80-97); PLATELET COUNT 166 10^3/uL (150-450); RED BLOOD COUNT 5.22 10^6/uL (3.72-5.28); RED CELL DISTRIBUTION WIDTH 19.9 % (11.5-14.0); WHITE BLOOD COUNT 7.7 10^3/uL (4.0-10.5)
[2017-09-05 08:05] LABS: INTERNATIONAL RATION (INR) 1.66; PROTHROMBIN TIME 20.6 SEC (11.4-15.4)
[2017-09-05 08:21] LABS: ANION GAP 14 (5-19); BLOOD UREA NITROGEN 9 mg/dL (7-20); CALCIUM 9.5 mg/dL (8.4-10.2); CARBON DIOXIDE 22 mmol/L (22-30); CHLORIDE 100 mmol/L (98-107); GLUCOSE 289 mg/dL (75-110); POTASSIUM 3.9 mmol/L (3.6-5.0); SODIUM 135.6 mmol/L (137-145)
== END ==
LOC: OD 07:23
PROVIDERS: ATTEND Internal Medicine Advanced Heart Failure and Transplant Cardiology
DX: I50.9 Heart failure, unspecified (principal); Z79.01 Long term (current) use of anticoagulants; Z79.899 Other long term (current) drug therapy; Z95.811 Presence of heart assist device
CPT/HCPCS: 36415; 80048; 85027; 85610

== ENCOUNTER → 2017-09-12 | Outpatient (CLI) | payer MEDICAID ==
[2017-09-12 09:12] LABS: INTERNATIONAL RATION (INR) 1.82; PROTHROMBIN TIME 22.1 SEC (11.4-15.4)
== END ==
LOC: OD 07:47
PROVIDERS: ATTEND Internal Medicine Advanced Heart Failure and Transplant Cardiology
DX: I50.9 Heart failure, unspecified (principal); Z79.01 Long term (current) use of anticoagulants; Z79.899 Other long term (current) drug therapy; Z95.811 Presence of heart assist device
CPT/HCPCS: 36415; 85610

== ENCOUNTER → 2017-09-24 | Outpatient (CLI) | payer MEDICAID ==
[2017-09-24 15:35] LABS: HEMATOCRIT 39.5 % (36.0-47.0); HEMOGLOBIN 12.6 g/dL (12.0-15.5); MEAN CORPUSCULAR HGB CONC 31.9 g/dL (32.0-36.0); MEAN CORPUSCULAR VOLUME 75 fl (80-97); PLATELET COUNT 214 10^3/uL (150-450); RED BLOOD COUNT 5.26 10^6/uL (3.72-5.28); RED CELL DISTRIBUTION WIDTH 20.4 % (11.5-14.0); WHITE BLOOD COUNT 6.8 10^3/uL (4.0-10.5)
[2017-09-24 15:40] LABS: PROTHROMBIN TIME 21.9 SEC (11.4-15.4)
[2017-09-24 15:50] LABS: ANION GAP 11 (5-19); BLOOD UREA NITROGEN 11 mg/dL (7-20); CALCIUM 10.5 mg/dL (8.4-10.2); CARBON DIOXIDE 22 mmol/L (22-30); CHLORIDE 104 mmol/L (98-107); GLUCOSE 322 mg/dL (75-110); POTASSIUM 4.4 mmol/L (3.6-5.0); SODIUM 137.3 mmol/L (137-145)
== END ==
LOC: OD 15:01
PROVIDERS: ATTEND Internal Medicine Advanced Heart Failure and Transplant Cardiology
DX: I50.9 Heart failure, unspecified (principal); Z79.01 Long term (current) use of anticoagulants; Z79.899 Other long term (current) drug therapy; Z95.811 Presence of heart assist device
CPT/HCPCS: 36415; 80048; 85027; 85610

== ENCOUNTER → 2017-10-02 | Outpatient (CLI) | payer MEDICAID ==
[2017-10-02 17:24] LABS: INTERNATIONAL RATION (INR) 2.15; PROTHROMBIN TIME 25.2 SEC (11.4-15.4)
== END ==
LOC: OD 16:30
PROVIDERS: ATTEND Internal Medicine Advanced Heart Failure and Transplant Cardiology
DX: I50.9 Heart failure, unspecified (principal); Z79.01 Long term (current) use of anticoagulants; Z79.899 Other long term (current) drug therapy; Z95.811 Presence of heart assist device
CPT/HCPCS: 36415; 85610

== ENCOUNTER → 2017-11-01 | Outpatient (CLI) | payer MEDICAID ==
[2017-11-01 10:13] LABS: HEMATOCRIT 39.4 % (36.0-47.0); HEMOGLOBIN 12.6 g/dL (12.0-15.5); MEAN CORPUSCULAR HEMOGLOBIN 23.9 pg (27.0-33.4); MEAN CORPUSCULAR HGB CONC 31.9 g/dL (32.0-36.0); MEAN CORPUSCULAR VOLUME 75 fl (80-97); PLATELET COUNT 189 10^3/uL (150-450); RED BLOOD COUNT 5.25 10^6/uL (3.72-5.28); RED CELL DISTRIBUTION WIDTH 20.1 % (11.5-14.0); WHITE BLOOD COUNT 7.9 10^3/uL (4.0-10.5)
[2017-11-01 10:22] LABS: INTERNATIONAL RATION (INR) 2.36; PROTHROMBIN TIME 26.9 SEC (11.4-15.4)
[2017-11-01 10:28] LABS: ANION GAP 15 (5-19); BLOOD UREA NITROGEN 11 mg/dL (7-20); CALCIUM 9.5 mg/dL (8.4-10.2); CARBON DIOXIDE 23 mmol/L (22-30); CHLORIDE 100 mmol/L (98-107); GLUCOSE 258 mg/dL (75-110); POTASSIUM 3.9 mmol/L (3.6-5.0); SODIUM 137.6 mmol/L (137-145)
== END ==
LOC: OD 09:48
PROVIDERS: ATTEND Internal Medicine Advanced Heart Failure and Transplant Cardiology
DX: I50.9 Heart failure, unspecified (principal); Z79.01 Long term (current) use of anticoagulants; Z79.899 Other long term (current) drug therapy; Z95.811 Presence of heart assist device
CPT/HCPCS: 36415; 80048; 85027; 85610

== ENCOUNTER → 2017-12-18 | Outpatient (CLI) | payer MEDICAID ==
[2017-12-18 10:07] LABS: INTERNATIONAL RATION (INR) 2.34; PROTHROMBIN TIME 26.8 SEC (11.4-15.4)
[2017-12-18 10:08] LABS: MEAN CORPUSCULAR HEMOGLOBIN 23.4 pg (27.0-33.4); MEAN CORPUSCULAR HGB CONC 31.5 g/dL (32.0-36.0); MEAN CORPUSCULAR VOLUME 74 fl (80-97); PLATELET COUNT 154 10^3/uL (150-450); RED BLOOD COUNT 5.13 10^6/uL (3.72-5.28); RED CELL DISTRIBUTION WIDTH 20.5 % (11.5-14.0); WHITE BLOOD COUNT 6.1 10^3/uL (4.0-10.5)
[2017-12-18 10:25] LABS: ANION GAP 12 (5-19); BLOOD UREA NITROGEN 10 mg/dL (7-20); CALCIUM 9.3 mg/dL (8.4-10.2); CARBON DIOXIDE 26 mmol/L (22-30); CHLORIDE 109 mmol/L (98-107); GLUCOSE 146 mg/dL (75-110); POTASSIUM 3.9 mmol/L (3.6-5.0); SODIUM 146.5 mmol/L (137-145)
== END ==
LOC: OD 09:18
PROVIDERS: ATTEND Internal Medicine Advanced Heart Failure and Transplant Cardiology
DX: I50.9 Heart failure, unspecified (principal); Z79.01 Long term (current) use of anticoagulants; Z79.899 Other long term (current) drug therapy; Z95.811 Presence of heart assist device
CPT/HCPCS: 36415; 80048; 85027; 85610

== ENCOUNTER → 2018-01-07 | Outpatient (CLI) | payer MEDICAID ==
[2018-01-07 17:29] LABS: INTERNATIONAL RATION (INR) 2.34; PROTHROMBIN TIME 26.8 SEC (11.4-15.4)
== END ==
LOC: OD 16:48
PROVIDERS: ATTEND Internal Medicine Advanced Heart Failure and Transplant Cardiology
DX: I50.9 Heart failure, unspecified (principal); Z79.01 Long term (current) use of anticoagulants; Z79.899 Other long term (current) drug therapy; Z95.811 Presence of heart assist device
CPT/HCPCS: 36415; 85610

== ENCOUNTER → 2018-02-05 | Outpatient (CLI) | payer MEDICAID ==
[2018-02-05 10:16] LABS: HEMATOCRIT 41.9 % (36.0-47.0); HEMOGLOBIN 13.6 g/dL (12.0-15.5); MEAN CORPUSCULAR HEMOGLOBIN 24.2 pg (27.0-33.4); MEAN CORPUSCULAR HGB CONC 32.3 g/dL (32.0-36.0); MEAN CORPUSCULAR VOLUME 75 fl (80-97); PLATELET COUNT 169 10^3/uL (150-450); RED BLOOD COUNT 5.61 10^6/uL (3.72-5.28); RED CELL DISTRIBUTION WIDTH 20.3 % (11.5-14.0); WHITE BLOOD COUNT 6.9 10^3/uL (4.0-10.5)
[2018-02-05 10:23] LABS: PROTHROMBIN TIME 27.3 SEC (11.4-15.4)
[2018-02-05 10:50] LABS: ANION GAP 14 (5-19); BLOOD UREA NITROGEN 8 mg/dL (7-20); CALCIUM 9.3 mg/dL (8.4-10.2); CARBON DIOXIDE 23 mmol/L (22-30); CHLORIDE 106 mmol/L (98-107); GLUCOSE 268 mg/dL (75-110); POTASSIUM 4.1 mmol/L (3.6-5.0); SODIUM 143.1 mmol/L (137-145)
== END ==
LOC: OD 09:17
PROVIDERS: ATTEND Internal Medicine Advanced Heart Failure and Transplant Cardiology
DX: Z79.01 Long term (current) use of anticoagulants (principal); Z79.899 Other long term (current) drug therapy; Z95.811 Presence of heart assist device
CPT/HCPCS: 36415; 80048; 85027; 85610

== ENCOUNTER → 2018-03-07 | Outpatient (CLI) | payer MEDICAID ==
[2018-03-07 15:33] LABS: HEMATOCRIT 41.3 % (36.0-47.0); HEMOGLOBIN 13.2 g/dL (12.0-15.5); MEAN CORPUSCULAR HEMOGLOBIN 24.4 pg (27.0-33.4); MEAN CORPUSCULAR VOLUME 76 fl (80-97); PLATELET COUNT 164 10^3/uL (150-450); RED BLOOD COUNT 5.42 10^6/uL (3.72-5.28); RED CELL DISTRIBUTION WIDTH 21.3 % (11.5-14.0); WHITE BLOOD COUNT 6.6 10^3/uL (4.0-10.5)
[2018-03-07 15:44] LABS: INTERNATIONAL RATION (INR) 1.87; PROTHROMBIN TIME 22.4 SEC (11.4-15.4)
== END ==
LOC: OD 14:54
PROVIDERS: ATTEND Internal Medicine Advanced Heart Failure and Transplant Cardiology
DX: I50.9 Heart failure, unspecified (principal); Z79.01 Long term (current) use of anticoagulants; Z79.899 Other long term (current) drug therapy; Z95.811 Presence of heart assist device
CPT/HCPCS: 36415; 85027; 85610

== ENCOUNTER → 2018-04-24 | Outpatient (CLI) | payer MEDICAID ==
[2018-04-24 11:23] LABS: INTERNATIONAL RATION (INR) 2.24; PROTHROMBIN TIME 25.8 SEC (11.4-15.4)
[2018-04-24 11:30] LABS: ANION GAP 15 (5-19); BLOOD UREA NITROGEN 11 mg/dL (7-20); CALCIUM 9.1 mg/dL (8.4-10.2); CARBON DIOXIDE 26 mmol/L (22-30); CHLORIDE 98 mmol/L (98-107); GLUCOSE 285 mg/dL (75-110); POTASSIUM 4.1 mmol/L (3.6-5.0); SODIUM 138.6 mmol/L (137-145)
[2018-04-24 12:07] LABS: HEMOGLOBIN 13.3 g/dL (12.0-15.5); MEAN CORPUSCULAR HEMOGLOBIN 24.7 pg (27.0-33.4); MEAN CORPUSCULAR HGB CONC 32.6 g/dL (32.0-36.0); MEAN CORPUSCULAR VOLUME 76 fl (80-97); PLATELET COUNT 167 10^3/uL (150-450); RED BLOOD COUNT 5.39 10^6/uL (3.72-5.28); RED CELL DISTRIBUTION WIDTH 20.3 % (11.5-14.0); WHITE BLOOD COUNT 7.3 10^3/uL (4.0-10.5)
== END ==
LOC: OD 10:35
PROVIDERS: ATTEND Internal Medicine Advanced Heart Failure and Transplant Cardiology
DX: I50.9 Heart failure, unspecified (principal); Z79.01 Long term (current) use of anticoagulants; Z79.899 Other long term (current) drug therapy; Z95.811 Presence of heart assist device
CPT/HCPCS: 36415; 80048; 85025; 85027; 85610

== ENCOUNTER → 2018-07-03 | Outpatient (CLI) | payer MEDICAID ==
[2018-07-03 14:42] LABS: INTERNATIONAL RATION (INR) 2.45; PROTHROMBIN TIME 27.7 SEC (11.4-15.4)
[2018-07-03 14:58] LABS: ALANINE AMINOTRANSFERASE 69 U/L (9-52); ASPARTATE AMINO TRANSFERASE 89 U/L (14-36); BILIRUBIN,TOTAL 0.9 mg/dL (0.2-1.3)
[2018-07-03 15:00] LABS: DIGOXIN < 0.40 ng/mL (0.8-2.0)
== END ==
LOC: OD 14:01
PROVIDERS: ATTEND Internal Medicine Advanced Heart Failure and Transplant Cardiology
DX: I50.9 Heart failure, unspecified (principal); Z79.01 Long term (current) use of anticoagulants; Z79.899 Other long term (current) drug therapy; Z95.811 Presence of heart assist device
CPT/HCPCS: 36415; 80162; 82247; 84450; 84460; 85610

== ENCOUNTER → 2018-08-01 | Outpatient (CLI) | payer MEDICAID ==
[2018-08-01 10:45] LABS: INTERNATIONAL RATION (INR) 2.75; PROTHROMBIN TIME 30.4 SEC (11.4-15.4)
[2018-08-01 11:00] LABS: ANION GAP 11 (5-19); BLOOD UREA NITROGEN 8 mg/dL (7-20); CALCIUM 9.3 mg/dL (8.4-10.2); CARBON DIOXIDE 25 mmol/L (22-30); CHLORIDE 102 mmol/L (98-107); GLUCOSE 344 mg/dL (75-110); POTASSIUM 4.4 mmol/L (3.6-5.0); SODIUM 137.5 mmol/L (137-145)
== END ==
LOC: OD 10:03
PROVIDERS: ATTEND Internal Medicine Advanced Heart Failure and Transplant Cardiology
DX: I50.9 Heart failure, unspecified (principal); Z79.01 Long term (current) use of anticoagulants; Z79.899 Other long term (current) drug therapy; Z95.811 Presence of heart assist device
CPT/HCPCS: 36415; 80048; 85610

== ENCOUNTER → 2018-09-11 | Outpatient (CLI) | payer MEDICAID ==
[2018-09-11 14:25] LABS: PROTHROMBIN TIME 26.4 SEC (11.4-15.4)
[2018-09-11 14:52] LABS: ANION GAP 10 (5-19); BLOOD UREA NITROGEN 11 mg/dL (7-20); CALCIUM 8.9 mg/dL (8.4-10.2); CARBON DIOXIDE 22 mmol/L (22-30); CHLORIDE 109 mmol/L (98-107); GLUCOSE 235 mg/dL (75-110); POTASSIUM 4.2 mmol/L (3.6-5.0); SODIUM 141.4 mmol/L (137-145)
== END ==
LOC: OD 13:32
PROVIDERS: ATTEND Internal Medicine Advanced Heart Failure and Transplant Cardiology
DX: I50.9 Heart failure, unspecified (principal); Z79.01 Long term (current) use of anticoagulants; Z79.899 Other long term (current) drug therapy; Z95.811 Presence of heart assist device
CPT/HCPCS: 36415; 80048; 83615; 85610

== ENCOUNTER → 2018-09-20 | Outpatient (CLI) | payer MEDICAID ==
[2018-09-20 13:00] LABS: INTERNATIONAL RATION (INR) 2.66; PROTHROMBIN TIME 29.6 SEC (11.4-15.4)
[2018-09-20 13:14] LABS: ANION GAP 13 (5-19); BLOOD UREA NITROGEN 11 mg/dL (7-20); CALCIUM 9.6 mg/dL (8.4-10.2); CARBON DIOXIDE 21 mmol/L (22-30); CHLORIDE 106 mmol/L (98-107); GLUCOSE 199 mg/dL (75-110); POTASSIUM 4.1 mmol/L (3.6-5.0); SODIUM 139.7 mmol/L (137-145)
== END ==
LOC: OD 12:05
PROVIDERS: ATTEND Internal Medicine Advanced Heart Failure and Transplant Cardiology
DX: I50.9 Heart failure, unspecified (principal); Z79.01 Long term (current) use of anticoagulants; Z79.899 Other long term (current) drug therapy; Z95.811 Presence of heart assist device
CPT/HCPCS: 36415; 80048; 83615; 85610

== ENCOUNTER → 2018-10-03 | Outpatient (CLI) | payer MEDICAID ==
[2018-10-03 11:39] LABS: ABSOLUTE BASOPHILS # (AUTO) 0.1 10^3/uL (0.0-0.2); ABSOLUTE EOSINOPHILS # (AUTO) 0.2 10^3/uL (0.0-0.6); ABSOLUTE LYMPHOCYTES (AUTO) 2.2 10^3/uL (0.5-4.7); ABSOLUTE MONOCYTES (AUTO) 0.6 10^3/uL (0.1-1.4); ABSOLUTE NEUT (AUTO) 3.7 10^3/uL (1.7-8.2); BASOPHILS % (AUTO) 0.9 % (0-2); EOSINOPHILS % (AUTO) 2.7 % (0-6); HEMATOCRIT 38.8 % (36.0-47.0); HEMOGLOBIN 12.8 g/dL (12.0-15.5); LYMPHOCYTES % (AUTO) 32.6 % (13-45); MEAN CORPUSCULAR VOLUME 79 fl (80-97); MONOCYTES % (AUTO) 8.6 % (3-13); PLATELET COUNT 172 10^3/uL (150-450); RED BLOOD COUNT 4.92 10^6/uL (3.72-5.28); RED CELL DISTRIBUTION WIDTH 19.4 % (11.5-14.0); SEGMENTED NEUTROPHILS % (AUTO) 55.2 % (42-78); TOTAL CELLS COUNTED % (AUTO) 100 %; WHITE BLOOD COUNT 6.6 10^3/uL (4.0-10.5)
[2018-10-03 11:44] LABS: INTERNATIONAL RATION (INR) 2.14; PROTHROMBIN TIME 24.9 SEC (11.4-15.4)
[2018-10-03 11:59] LABS: ANION GAP 14 (5-19); BLOOD UREA NITROGEN 13 mg/dL (7-20); CALCIUM 10.1 mg/dL (8.4-10.2); CARBON DIOXIDE 22 mmol/L (22-30); CHLORIDE 101 mmol/L (98-107); GLUCOSE 226 mg/dL (75-110); SODIUM 137.2 mmol/L (137-145)
== END ==
LOC: OD 10:48
PROVIDERS: ATTEND Internal Medicine Advanced Heart Failure and Transplant Cardiology
DX: I50.9 Heart failure, unspecified (principal); Z79.01 Long term (current) use of anticoagulants; Z79.899 Other long term (current) drug therapy; Z95.811 Presence of heart assist device
CPT/HCPCS: 36415; 80048; 83615; 85025; 85610

== ENCOUNTER → 2018-10-23 | Outpatient (CLI) | payer MEDICAID ==
[2018-10-23 13:52] LABS: INTERNATIONAL RATION (INR) 2.35; PROTHROMBIN TIME 26.8 SEC (11.4-15.4)
[2018-10-23 14:01] LABS: ANION GAP 11 (5-19); BLOOD UREA NITROGEN 11 mg/dL (7-20); CALCIUM 9.3 mg/dL (8.4-10.2); CARBON DIOXIDE 21 mmol/L (22-30); CHLORIDE 108 mmol/L (98-107); GLUCOSE 196 mg/dL (75-110); POTASSIUM 3.5 mmol/L (3.6-5.0); SODIUM 140.3 mmol/L (137-145)
== END ==
LOC: OD 13:03
PROVIDERS: ATTEND Internal Medicine Advanced Heart Failure and Transplant Cardiology
DX: I50.9 Heart failure, unspecified (principal); Z79.01 Long term (current) use of anticoagulants; Z79.899 Other long term (current) drug therapy
CPT/HCPCS: 36415; 80048; 83615; 85610

== ENCOUNTER → 2018-11-04 | Outpatient (CLI) | payer MEDICAID ==
[2018-11-04 13:42] LABS: INTERNATIONAL RATION (INR) 3.09; PROTHROMBIN TIME 33.3 SEC (11.4-15.4)
== END ==
LOC: OD 13:09
PROVIDERS: ATTEND Internal Medicine Advanced Heart Failure and Transplant Cardiology
DX: I50.9 Heart failure, unspecified (principal); Z79.01 Long term (current) use of anticoagulants; Z95.811 Presence of heart assist device
CPT/HCPCS: 36415; 85610

== ENCOUNTER → 2018-11-26 | Outpatient (CLI) | payer MEDICAID ==
[2018-11-26 10:06] LABS: INTERNATIONAL RATION (INR) 3.71; PROTHROMBIN TIME 38.5 SEC (11.4-15.4)
[2018-11-26 10:57] LABS: ANION GAP 13 (5-19); BLOOD UREA NITROGEN 9 mg/dL (7-20); CALCIUM 9.2 mg/dL (8.4-10.2); CARBON DIOXIDE 23 mmol/L (22-30); CHLORIDE 107 mmol/L (98-107); GLUCOSE 151 mg/dL (75-110); SODIUM 142.6 mmol/L (137-145)
== END ==
LOC: OD 09:19
PROVIDERS: ATTEND Internal Medicine Advanced Heart Failure and Transplant Cardiology
DX: I50.9 Heart failure, unspecified (principal); Z79.01 Long term (current) use of anticoagulants; Z79.899 Other long term (current) drug therapy; Z95.811 Presence of heart assist device
CPT/HCPCS: 36415; 80048; 83615; 85610

== ENCOUNTER → 2018-12-11 | Outpatient (CLI) | payer MEDICAID ==
[2018-12-11 15:04] LABS: HEMATOCRIT 36.2 % (36.0-47.0); HEMOGLOBIN 11.5 g/dL (12.0-15.5); MEAN CORPUSCULAR HEMOGLOBIN 24.3 pg (27.0-33.4); MEAN CORPUSCULAR HGB CONC 31.8 g/dL (32.0-36.0); MEAN CORPUSCULAR VOLUME 76 fl (80-97); PLATELET COUNT 169 10^3/uL (150-450); RED BLOOD COUNT 4.74 10^6/uL (3.72-5.28); RED CELL DISTRIBUTION WIDTH 19.5 % (11.5-14.0); WHITE BLOOD COUNT 6.2 10^3/uL (4.0-10.5)
[2018-12-11 15:07] LABS: INTERNATIONAL RATION (INR) 2.58; PROTHROMBIN TIME 28.9 SEC (11.4-15.4)
[2018-12-11 15:26] LABS: ANION GAP 12 (5-19); BLOOD UREA NITROGEN 10 mg/dL (7-20); CALCIUM 9.3 mg/dL (8.4-10.2); CARBON DIOXIDE 24 mmol/L (22-30); CHLORIDE 105 mmol/L (98-107); GLUCOSE 236 mg/dL (75-110); POTASSIUM 3.8 mmol/L (3.6-5.0); SODIUM 140.7 mmol/L (137-145)
== END ==
LOC: OD 13:36
PROVIDERS: ATTEND Internal Medicine Advanced Heart Failure and Transplant Cardiology
DX: I50.9 Heart failure, unspecified (principal); Z79.01 Long term (current) use of anticoagulants; Z95.811 Presence of heart assist device; Z79.899 Other long term (current) drug therapy
CPT/HCPCS: 36415; 80048; 83615; 85027; 85610

== ENCOUNTER → 2018-12-24 | Outpatient (CLI) | payer MEDICAID ==
[2018-12-24 14:21] LABS: HEMATOCRIT 34.5 % (36.0-47.0); HEMOGLOBIN 10.9 g/dL (12.0-15.5); MEAN CORPUSCULAR HEMOGLOBIN 23.9 pg (27.0-33.4); MEAN CORPUSCULAR HGB CONC 31.7 g/dL (32.0-36.0); MEAN CORPUSCULAR VOLUME 76 fl (80-97); PLATELET COUNT 216 10^3/uL (150-450); RED BLOOD COUNT 4.56 10^6/uL (3.72-5.28); RED CELL DISTRIBUTION WIDTH 19.8 % (11.5-14.0); WHITE BLOOD COUNT 6.7 10^3/uL (4.0-10.5)
[2018-12-24 14:27] LABS: INTERNATIONAL RATION (INR) 2.63; PROTHROMBIN TIME 29.3 SEC (11.4-15.4)
[2018-12-24 14:47] LABS: ANION GAP 12 (5-19); BLOOD UREA NITROGEN 9 mg/dL (7-20); CALCIUM 9.1 mg/dL (8.4-10.2); CARBON DIOXIDE 24 mmol/L (22-30); CHLORIDE 107 mmol/L (98-107); GLUCOSE 179 mg/dL (75-110); POTASSIUM 3.5 mmol/L (3.6-5.0); SODIUM 143.4 mmol/L (137-145)
== END ==
LOC: OD 13:31
PROVIDERS: ATTEND Internal Medicine Advanced Heart Failure and Transplant Cardiology
DX: I50.9 Heart failure, unspecified (principal); Z79.01 Long term (current) use of anticoagulants; Z95.811 Presence of heart assist device
CPT/HCPCS: 36415; 80048; 83615; 85027; 85610

== ENCOUNTER → 2019-01-09 | Outpatient (CLI) | payer MEDICAID ==
[2019-01-09 15:28] LABS: INTERNATIONAL RATION (INR) 3.17
[2019-01-09 15:39] LABS: ANION GAP 11 (5-19); BLOOD UREA NITROGEN 9 mg/dL (7-20); CALCIUM 9.2 mg/dL (8.4-10.2); CARBON DIOXIDE 23 mmol/L (22-30); CHLORIDE 105 mmol/L (98-107); GLUCOSE 208 mg/dL (75-110); POTASSIUM 3.8 mmol/L (3.6-5.0); SODIUM 139.4 mmol/L (137-145)
== END ==
LOC: OD 14:39
PROVIDERS: ATTEND Internal Medicine Advanced Heart Failure and Transplant Cardiology
DX: I50.9 Heart failure, unspecified (principal); Z79.01 Long term (current) use of anticoagulants; Z79.899 Other long term (current) drug therapy; Z95.811 Presence of heart assist device
CPT/HCPCS: 36415; 80048; 85610

== ENCOUNTER → 2019-01-27 | Outpatient (CLI) | payer MEDICAID ==
[2019-01-27 15:28] LABS: INTERNATIONAL RATION (INR) 2.67
[2019-01-27 15:32] LABS: ANION GAP 9 (5-19); BLOOD UREA NITROGEN 11 mg/dL (7-20); CALCIUM 9.2 mg/dL (8.4-10.2); CARBON DIOXIDE 27 mmol/L (22-30); CHLORIDE 104 mmol/L (98-107); GLUCOSE 254 mg/dL (75-110); POTASSIUM 4.2 mmol/L (3.6-5.0); SODIUM 139.6 mmol/L (137-145)
== END ==
LOC: OD 14:41
PROVIDERS: ATTEND Internal Medicine Advanced Heart Failure and Transplant Cardiology
DX: I50.9 Heart failure, unspecified (principal); Z79.01 Long term (current) use of anticoagulants; Z79.899 Other long term (current) drug therapy; Z95.811 Presence of heart assist device
CPT/HCPCS: 36415; 80048; 85610

== ENCOUNTER → 2019-02-27 | Outpatient (CLI) | payer MEDICAID ==
[2019-02-27 14:39] LABS: INTERNATIONAL RATION (INR) 1.99; PROTHROMBIN TIME 22.9 SEC (11.4-15.4)
[2019-02-27 14:40] LABS: HEMATOCRIT 34.2 % (36.0-47.0); HEMOGLOBIN 10.6 g/dL (12.0-15.5); MEAN CORPUSCULAR HEMOGLOBIN 22.2 pg (27.0-33.4); MEAN CORPUSCULAR HGB CONC 30.9 g/dL (32.0-36.0); MEAN CORPUSCULAR VOLUME 72 fl (80-97); PLATELET COUNT 216 10^3/uL (150-450); RED BLOOD COUNT 4.76 10^6/uL (3.72-5.28); RED CELL DISTRIBUTION WIDTH 20.3 % (11.5-14.0); WHITE BLOOD COUNT 7.8 10^3/uL (4.0-10.5)
[2019-02-27 14:57] LABS: ANION GAP 12 (5-19); BLOOD UREA NITROGEN 11 mg/dL (7-20); CALCIUM 9.6 mg/dL (8.4-10.2); CARBON DIOXIDE 24 mmol/L (22-30); CHLORIDE 101 mmol/L (98-107); GLUCOSE 268 mg/dL (75-110); POTASSIUM 4.4 mmol/L (3.6-5.0)
== END ==
LOC: OD 14:04
PROVIDERS: ATTEND Internal Medicine Advanced Heart Failure and Transplant Cardiology
DX: I50.9 Heart failure, unspecified (principal); Z79.01 Long term (current) use of anticoagulants; Z79.899 Other long term (current) drug therapy; Z95.811 Presence of heart assist device
CPT/HCPCS: 36415; 80048; 83615; 85027; 85610

== ENCOUNTER → 2019-03-11 | Outpatient (CLI) | payer MEDICAID ==
[2019-03-11 16:38] LABS: INTERNATIONAL RATION (INR) 1.64; PROTHROMBIN TIME 19.7 SEC (11.4-15.4)
[2019-03-11 16:42] LABS: HEMATOCRIT 37.3 % (36.0-47.0); HEMOGLOBIN 11.7 g/dL (12.0-15.5); MEAN CORPUSCULAR HEMOGLOBIN 22.1 pg (27.0-33.4); MEAN CORPUSCULAR HGB CONC 31.4 g/dL (32.0-36.0); MEAN CORPUSCULAR VOLUME 70 fl (80-97); RED CELL DISTRIBUTION WIDTH 20.2 % (11.5-14.0); WHITE BLOOD COUNT 6.4 10^3/uL (4.0-10.5)
[2019-03-11 16:45] LABS: ANION GAP 13 (5-19); BLOOD UREA NITROGEN 9 mg/dL (7-20); CALCIUM 9.6 mg/dL (8.4-10.2); CARBON DIOXIDE 25 mmol/L (22-30); CHLORIDE 101 mmol/L (98-107); GLUCOSE 341 mg/dL (75-110); POTASSIUM 4.2 mmol/L (3.6-5.0)
[2019-03-11 17:13] LABS: PLATELET COUNT 173 10^3/uL (150-450)
== END ==
LOC: OD 15:38
PROVIDERS: ATTEND Internal Medicine Advanced Heart Failure and Transplant Cardiology
DX: I50.9 Heart failure, unspecified (principal); Z79.01 Long term (current) use of anticoagulants; Z79.899 Other long term (current) drug therapy; Z95.811 Presence of heart assist device
CPT/HCPCS: 36415; 80048; 83615; 85027; 85610

== ENCOUNTER 2019-03-17 09:54 | Emergency (ER) | payer MEDICAID ==
--- NOTE | 2019-03-17 10:05 | ER Document Report ---
ED Medical Screen (RME) - General Stated Complaint: LEG PAIN Time Seen by Provider: 03/17/19 09:59 Primary Care Provider: YANCY TUBBS MD [Primary Care Provider] - Follow up as needed TRAVEL OUTSIDE OF THE [place] IN LAST 30 DAYS: No - HPI Notes: 03/17/19 10:01 49-year-old female with significant history of hypertension, hyperlipidemia, diabetes, on an LVAD from cardiomyopathy to the emergency department with complaints of right leg weakness that began this morning at 4 AM. She states that she got up at 3 AM to eat something. She states at that time she could walk but when she got up at 4 AM to use the restroom, she found that her right leg was significantly weak. Every time she tries to bear weight on this leg she feels like it is heavy and it twisted underneath her. She states that she is on a blood thinnerwarfarin. She has never had a stroke before. She denies any speech difficulties or upper extremity difficulties. She denies any falls, back pain or leg pain. She denies any bladder or bowel incontinence, saddle paresthesia, radiculopathy. On exam patient has cranial nerves II through XII intact. She has no pronator drift. She has normal [id number] bilaterally. She has no tongue deviation. She has no dysarthria. Her upper extremities have 5 out of 5 strength bilaterally against resistance. She has no leg drift bilaterally. She appears to have good strength in both legs against resistance with 5 out of 5 strength in flexion and extension. Patient is in a wheelchair and she was not ambulated at time of initial medical screening exam. I performed a medical screening exam and have notified attending physicians on the main side about the patient. I have placed orders to start patient's care including a head CT. I will have main side attending further evaluate patient. Her last known normal is 3 AM.. - Related Data Allergies/Adverse Reactions: amoxicillin [Amoxicillin] Allergy (Verified 03/17/19 09:56) Penicillins Allergy (Verified 03/17/19 09:56) Past Medical History - Past Medical History Cardiac Medical History: Reports: Hx Atrial Fibrillation, Hx Congestive Heart Failure, Hx Hypercholesterolemia Renal/ Medical History: Denies: Hx Peritoneal Dialysis Past Surgical History: Reports: Hx Abdominal Surgery - CHOLECYSTECTOMY, Hx Cardiac Surgery - LVAD, Hx Section, Hx Cholecystectomy, Hx Hysterectomy, Hx Internal Defibrillator - secondary to bradycardia, per patient., Hx Pacemaker - Immunizations Immunizations up to date: Yes Hx Diphtheria, Pertussis, Tetanus Vaccination: Yes Doctor's Discharge - Discharge Referrals: YANCY TUBBS MD [Primary Care Provider] - Follow up as needed
[2019-03-17 10:29] LABS: ABSOLUTE EOSINOPHILS # (AUTO) 0.2 10^3/uL (0.0-0.6); ABSOLUTE LYMPHOCYTES (AUTO) 2.3 10^3/uL (0.5-4.7); ABSOLUTE MONOCYTES (AUTO) 0.7 10^3/uL (0.1-1.4); ABSOLUTE NEUT (AUTO) 4.1 10^3/uL (1.7-8.2); BASOPHILS % (AUTO) 0.4 % (0-2); EOSINOPHILS % (AUTO) 2.4 % (0-6); HEMATOCRIT 39.5 % (36.0-47.0); HEMOGLOBIN 12.2 g/dL (12.0-15.5); LYMPHOCYTES % (AUTO) 32.1 % (13-45); MEAN CORPUSCULAR HEMOGLOBIN 21.8 pg (27.0-33.4); MEAN CORPUSCULAR VOLUME 70 fl (80-97); MONOCYTES % (AUTO) 9.2 % (3-13); PLATELET COUNT 144 10^3/uL (150-450); RED CELL DISTRIBUTION WIDTH 20.3 % (11.5-14.0); SEGMENTED NEUTROPHILS % (AUTO) 55.9 % (42-78); TOTAL CELLS COUNTED % (AUTO) 100 %; WHITE BLOOD COUNT 7.3 10^3/uL (4.0-10.5)
[2019-03-17 10:33] LABS: INTERNATIONAL RATION (INR) 2.32; PROTHROMBIN TIME 25.8 SEC (11.4-15.4)
[2019-03-17 10:34] LABS: PARTIAL THROMBOPLASTIN TIME 37.2 SEC (23.5-35.8)
--- NOTE | 2019-03-17 10:46 | RADIOLOGY REPORT (SQ) ---
EXAM DESCRIPTION: CT HEAD WITHOUT COMPLETED DATE/TIME: 03/17/2019 10:35 am REASON FOR STUDY: inability to bear weight since 4 am COMPARISON: None. TECHNIQUE: Axial images acquired through the brain without intravenous contrast. Images reviewed wi th bone, brain and subdural windows. Additional sagittal and coronal reconstructions were generated. Images stored on PACS. All CT scanners at this facility use dose modulation, iterative reconstruction, and/or weight based d osing when appropriate to reduce radiation dose to as low as reasonably achievable (ALARA). [facility]: Dose Right [facility]: CareDose [facility]: Dose Right [facility]: Teradose 4D [facility]: Smart Iddiction RADIATION DOSE: CT Rad equipment meets quality standard of care and radiation dose reduction techniq ues were employed. CTDIvol: 48.5 mGy. DLP: 878 mGy-cm. mGy. LIMITATIONS: None. FINDINGS: VENTRICLES: Normal size and contour. CEREBRUM: No masses. No hemorrhage. No midline shift. No evidence for acute infarction. There is a n old left MCA infarct. There is an old right parietal infarct. CEREBELLUM: No masses. No hemorrhage. No alteration of density. No evidence for acute infarction. EXTRAAXIAL SPACES: No fluid collections. No masses. ORBITS AND GLOBE: No intra- or extraconal masses. Normal contour of globe without masses. CALVARIUM: No fracture. PARANASAL SINUSES: No fluid or mucosal thickening. SOFT TISSUES: No mass or hematoma. OTHER: No other significant finding. 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 EVIDENCE OF ACUTE STROKE: NO. COMMENT: Quality ID # [id number]: Final reports with documentation of one or more dose reduction techniques (e.g., Automated exposure control, adjustment of the mA and/or kV according to patient size, use of iterative reconstruction technique) TECHNICAL DOCUMENTATION: JOB ID: [id number] [employer]- All Rights Reserved Reading location - IP/workstation name: [email or web address]
[2019-03-17 10:57] LABS: ALBUMIN 4.6 g/dL (3.5-5.0); ALKALINE PHOSPHATASE 159 U/L (38-126); ANION GAP 11 (5-19); ASPARTATE AMINO TRANSFERASE 94 U/L (14-36); BILIRUBIN,DIRECT 0.5 mg/dL (0.0-0.4); BILIRUBIN,TOTAL 0.9 mg/dL (0.2-1.3); BLOOD UREA NITROGEN 11 mg/dL (7-20); CALCIUM 9.6 mg/dL (8.4-10.2); CARBON DIOXIDE 25 mmol/L (22-30); CHLORIDE 100 mmol/L (98-107); CREATINE KINASE 43 U/L (30-135); GLUCOSE 371 mg/dL (75-110); POTASSIUM 3.9 mmol/L (3.6-5.0); TOTAL PROTEIN 8.7 g/dL (6.3-8.2)
[2019-03-17 10:58] LABS: DIGOXIN < 0.40 ng/mL (0.8-2.0)
--- NOTE | 2019-03-17 11:03 | ER Document Report ---
Entered by CAMRON BARNEY SCRIBE 03/17/19 1012 Acting as scribe for:TOLU GIORDANO MD ED Neuro Symptoms/Deficit - General Chief Complaint: General Weakness Stated Complaint: LEG PAIN Time Seen by Provider: 03/17/19 09:59 Primary Care Provider: YANCY TUBBS MD [NO LOCAL MD] - Follow up as needed Information source: Patient Notes: 49 year old female with LVAD that presents to the emergency department today with complaints of being unable to ambulate secondary to her "right leg not letting her do nothing". Patient states that when she lies down in bed, she cannot tell that anything is wrong, stating that she has full strength in her lower extremities. Patient states that when she tries to stand or walk though, she is "not coordinated" in her right leg. Patient denies any numbness, tingling, arm involvement, or pain. TRAVEL OUTSIDE OF THE U[place] IN LAST 30 DAYS: No - Related Data Allergies/Adverse Reactions: amoxicillin [Amoxicillin] Allergy (Verified 03/17/19 09:56) Penicillins Allergy (Verified 03/17/19 09:56) Past Medical History - General Information source: Patient - Social History Smoking Status: Former Smoker Cigarette use (# per day): No Frequency of alcohol use: None Drug Abuse: None Lives with: Family Family History: Reviewed & Not Pertinent Patient has suicidal ideation: No Patient has homicidal ideation: No - Past Medical History Cardiac Medical History: Reports: Hx Atrial Fibrillation, Hx Congestive Heart Failure, Hx Hypercholesterolemia Neurological Medical History: Denies: Hx Cerebrovascular Accident Endocrine Medical History: Reports: Hx Diabetes Mellitus Type 2 Past Surgical History: Reports: Hx Cardiac Surgery - LVAD, Hx Section, Hx Cholecystectomy, Hx Hysterectomy, Hx Internal Defibrillator - secondary to bradycardia, per patient., Hx Pacemaker - Pacemaker/defibrillator defibrillator - Immunizations Immunizations up to date: Yes Hx Diphtheria, Pertussis, Tetanus Vaccination: Yes Review of Systems - Review of Systems Constitutional: No symptoms reported EENT: No symptoms reported Cardiovascular: No symptoms reported Respiratory: No symptoms reported Gastrointestinal: No symptoms reported Genitourinary: No symptoms reported Female Genitourinary: No symptoms reported Musculoskeletal: No symptoms reported Skin: No symptoms reported Hematologic/Lymphatic: No symptoms reported Neurological/Psychological: See HPI, Other - unable to bear weight on right leg, "coordination issue". denies: Weakness, Numbness, Tingling -: Yes All other systems reviewed and negative Physical Exam - Vital signs Vitals: Resp Pulse Ox 21 H 96 03/17/19 10:06 03/17/19 10:06 - Notes Notes: Physical Exam: General: Alert, appears well. Obese. HEENT: Normocephalic. Atraumatic. PERRL. Extraocular movements intact. Oropharynx clear. Neck: Supple. Non-tender. Respiratory: No respiratory distress. Clear and equal breath sounds bilaterally. Cardiovascular: Regular rate and rhythm. Mechanical whir can be heard consistent with LVAD. No palpable radial pulses consistent with LVAD. Abdominal: Obese. Non-tender. No distension. Normal Bowel Sounds. Back: No gross abnormalities. Extremities: Moves all four extremities. Upper extremities: Normal inspection. Normal ROM. Lower extremities: Normal inspection. No edema. Normal ROM. Neurological: Normal cognition. AAOx4. Normal speech. Psychological: Normal affect. Normal Mood. Skin: Warm. Dry. Normal color. Course - Re-evaluation Re-evalutation: 03/17/19 11:[address] shows a rather large old left MCA territory infarct and right parietal infarcts without any acute changes. The patient states that she has no knowledge of ever having a stroke in the past, and does not know if she has ever had a brain scan done in the past. 03/17/19 12:56 Dr. Whitlock came and spoke with the patient, they eventually decided to go to [facility]. A call was placed to the LVAD coordinator, she requested the patient be transferred to [facility] and the accepting would be Dr. Fariba Ding. - Vital Signs Vital signs: Temp Pulse Resp BP Pulse Ox 20 115/72 97 03/17/19 14:00 03/17/19 10:24 03/17/19 14:00 - Laboratory Result Diagrams: 03/17/19 10:10 03/17/19 10:10 Laboratory results interpreted by me: 03/17/19 03/17/19 03/17/19 10:10 10:10 10:10 RBC 5.60 H MCV 70 L MCH 21.8 L MCHC 31.0 L RDW 20.3 H Plt Count 144 L PT 25.8 H APTT 37.2 H Sodium 136.4 L Glucose 371 H Hemoglobin A1c % Direct Bilirubin 0.5 H AST 94 H Alkaline Phosphatase 159 H Total Protein 8.7 H Digoxin < 0.40 L 03/17/19 10:10 RBC MCV MCH MCHC RDW Plt Count PT APTT Sodium Glucose Hemoglobin A1c % 8.3 H Direct Bilirubin AST Alkaline Phosphatase Total Protein Digoxin - Diagnostic Test Radiology reviewed: Image reviewed, Reports reviewed - CT scan of the head shows an old left MCA and old right parietal infarct. There are no acute changes. - EKG Interpretation by Me EKG shows normal: Sinus rhythm, [place], Intervals, QRS Complexes, ST-T Waves Rate: Normal - 75 [place]/QRS: Left axis deviation, IVCD Voltage: Consistant with LVH - Consults Dr. Whitlock Time consulted: 12:07 Consulted provider: will come to ER - Transfer of Care Care transferred to following provider: Dr. Singer Notes: 03/17/19 16:25 Patient is pending transfer to [facility]. Amanda, the pt's nurse will call at [facility] and get a list of the patient's medications that she is supposed to be taking now. She should have these medications prescribed when they can be verified. Discharge - Discharge Clinical Impression: Right leg weakness, Poorly controlled diabetes mellitus CVA (cerebral vascular accident) Qualifiers: CVA mechanism: unspecified Qualified Code(s): I63.9 - Cerebral infarction, unspecified Hyperglycemia due to type 2 diabetes mellitus Qualifiers: Diabetes mellitus marine oil terminal superintendent insulin use: without marine oil terminal superintendent use Qualified Code(s): E11.65 - Type 2 diabetes mellitus with hyperglycemia Condition: Stable Disposition: [place] Referrals: YANCY TUBBS MD [NO LOCAL MD] - Follow up as needed Scribe Attestation: 03/17/19 12:39 I personally performed the services described in the documentation, reviewed and edited the documentation which was dictated to the scribe in my presence, and it accurately records my words and actions. I personally performed the services described in the documentation, reviewed and edited the documentation which was dictated to the scribe in my presence, and it accurately records my words and actions.
[2019-03-17 11:08] LABS: CREATINE KINASE MB < 0.22 ng/mL (<4.55); TROPONIN I < 0.012 ng/mL
--- NOTE | 2019-03-17 13:22 | EKG REPORT ---
SEVERITY:- ABNORMAL ECG - SINUS RHYTHM NONSPECIFIC IVCD WITH LAD LVH WITH SECONDARY REPOLARIZATION ABNORMALITY FIRST DEGREE AVB. CONSIDER OLD INFERIOR IL. : Confirmed by: Marko Smith MD 17-Mar-2019 13:21:51
--- NOTE | 2019-03-17 21:03 | ER Document Report ---
Doctor's Note Notes: 03/17/19 21:03 I reexamined the patient just now. She is resting comfortably in the bed eating dinner. She is very awake and alert and in no apparent distress. Heart is regular rate and rhythm skin is warm and dry's are clear to auscultation
[2019-03-17 22:03] VITALS: BP 102/74
== END 2019-03-17 22:05 | disposition short-term general hospital (02) ==
LOC: ER 09:54
DX: I63.9 Cerebral infarction, unspecified (principal); M62.81 Muscle weakness (generalized); E11.65 Type 2 diabetes mellitus with hyperglycemia; M79.604 Pain in right leg; M79.605 Pain in left leg; Z87.891 Personal history of nicotine dependence; I50.9 Heart failure, unspecified; I48.91 Unspecified atrial fibrillation; Z95.811 Presence of heart assist device
CPT/HCPCS: 36415; 70450; 80053; 80162; 82550; 82553; 83036; 84484; 85025; 85610; 85730; 93005; 93010; 99285

== ENCOUNTER → 2019-03-28 | Outpatient (CLI) | payer MEDICAID ==
[2019-03-28 13:51] LABS: INTERNATIONAL RATION (INR) 1.87; PROTHROMBIN TIME 21.8 SEC (11.4-15.4)
== END ==
LOC: LAB 13:23
PROVIDERS: ATTEND Internal Medicine Advanced Heart Failure and Transplant Cardiology
DX: I50.9 Heart failure, unspecified (principal); Z79.01 Long term (current) use of anticoagulants; Z79.899 Other long term (current) drug therapy; Z95.811 Presence of heart assist device
CPT/HCPCS: 36415; 83615; 85610

== ENCOUNTER → 2019-04-03 | Outpatient (CLI) | payer MEDICAID ==
[2019-04-03 15:41] LABS: HEMATOCRIT 30.5 % (36.0-47.0); HEMOGLOBIN 9.4 g/dL (12.0-15.5); MEAN CORPUSCULAR HEMOGLOBIN 21.9 pg (27.0-33.4); MEAN CORPUSCULAR HGB CONC 30.9 g/dL (32.0-36.0); MEAN CORPUSCULAR VOLUME 71 fl (80-97); PLATELET COUNT 186 10^3/uL (150-450); RED BLOOD COUNT 4.31 10^6/uL (3.72-5.28); RED CELL DISTRIBUTION WIDTH 21.9 % (11.5-14.0); WHITE BLOOD COUNT 6.8 10^3/uL (4.0-10.5)
[2019-04-03 15:50] LABS: INTERNATIONAL RATION (INR) 1.58
[2019-04-03 15:59] LABS: ANION GAP 10 (5-19); BLOOD UREA NITROGEN 10 mg/dL (7-20); CALCIUM 9.2 mg/dL (8.4-10.2); CARBON DIOXIDE 27 mmol/L (22-30); CHLORIDE 99 mmol/L (98-107); GLUCOSE 237 mg/dL (75-110); POTASSIUM 4.3 mmol/L (3.6-5.0)
== END ==
LOC: OD 14:43
PROVIDERS: ATTEND Internal Medicine Advanced Heart Failure and Transplant Cardiology
DX: I50.9 Heart failure, unspecified (principal); Z79.01 Long term (current) use of anticoagulants; Z79.899 Other long term (current) drug therapy; Z95.811 Presence of heart assist device
CPT/HCPCS: 36415; 80048; 83615; 85027; 85610

== ENCOUNTER 2019-04-08 14:44 | Emergency (ER) | payer MEDICAID ==
[2019-04-08] MEDS ORDERED: NORMAL SALINE 250 ML IV PRN (15:13)
[2019-04-08 15:30] LABS: ABSOLUTE BASOPHILS # (AUTO) 0.1 10^3/uL (0.0-0.2); ABSOLUTE LYMPHOCYTES (AUTO) 2.3 10^3/uL (0.5-4.7); ABSOLUTE NEUT (AUTO) 8.2 10^3/uL (1.7-8.2); BASOPHILS % (AUTO) 0.6 % (0-2); EOSINOPHILS % (AUTO) 0.4 % (0-6); HEMATOCRIT 20.3 % (36.0-47.0); LYMPHOCYTES % (AUTO) 20.1 % (13-45); MEAN CORPUSCULAR HEMOGLOBIN 21.8 pg (27.0-33.4); MEAN CORPUSCULAR HGB CONC 30.6 g/dL (32.0-36.0); MEAN CORPUSCULAR VOLUME 71 fl (80-97); MONOCYTES % (AUTO) 8.2 % (3-13); PLATELET COUNT 232 10^3/uL (150-450); RED BLOOD COUNT 2.86 10^6/uL (3.72-5.28); RED CELL DISTRIBUTION WIDTH 21.6 % (11.5-14.0); SEGMENTED NEUTROPHILS % (AUTO) 70.7 % (42-78); TOTAL CELLS COUNTED % (AUTO) 100 %; WHITE BLOOD COUNT 11.6 10^3/uL (4.0-10.5)
[2019-04-08 15:33] LABS: HEMOGLOBIN 6.2 g/dL (12.0-15.5)
[2019-04-08 15:34] LABS: INTERNATIONAL RATION (INR) 2.13; PROTHROMBIN TIME 24.2 SEC (11.4-15.4)
[2019-04-08 15:47] LABS: ALKALINE PHOSPHATASE 119 U/L (38-126); ANION GAP 12 (5-19); ASPARTATE AMINO TRANSFERASE 48 U/L (14-36); BILIRUBIN,DIRECT 0.2 mg/dL (0.0-0.4); BILIRUBIN,TOTAL 0.6 mg/dL (0.2-1.3); BLOOD UREA NITROGEN 16 mg/dL (7-20); CALCIUM 8.9 mg/dL (8.4-10.2); CARBON DIOXIDE 24 mmol/L (22-30); CHLORIDE 98 mmol/L (98-107); GLUCOSE 281 mg/dL (75-110); POTASSIUM 4.2 mmol/L (3.6-5.0)
[2019-04-08] MEDS ORDERED: PANTOPRAZOLE SODIUM 40 MG VIAL IV ONE (16:12)
--- NOTE | 2019-04-08 16:17 | ER Document Report ---
ED Dizziness/Weakness - General Chief Complaint: General Weakness Stated Complaint: WEAKNESS Time Seen by Provider: 04/08/19 15:03 Primary Care Provider: MARCELO TANG PA-C [Primary Care Provider] - Follow up as needed TRAVEL OUTSIDE OF THE [place] IN LAST 30 DAYS: No - HPI Notes: Patient presents complaining of generalized weakness for 4 to 5 days. She also states that her stools become dark. She denies any vomiting but is had some nausea. No significant abdominal pain. She has not had diarrhea. She has had no trouble with urination. She states that her weakness is worse with exertion and better with rest. There is no known radiation of symptoms. They are severe. They are constant. Patient does have a left ventricular assist device was had no recent problems with this. No chest pain or shortness of breath. - Related Data Allergies/Adverse Reactions: amoxicillin [Amoxicillin] Allergy (Verified 04/08/19 14:46) Penicillins Allergy (Verified 04/08/19 14:46) Past Medical History - General Information source: Patient - Social History Smoking Status: Former Smoker Frequency of alcohol use: None Drug Abuse: None Family History: Reviewed & Not Pertinent - Past Medical History Cardiac Medical History: Reports: Hx Atrial Fibrillation, Hx Congestive Heart Failure, Hx Hypercholesterolemia Neurological Medical History: Denies: Hx Cerebrovascular Accident Endocrine Medical History: Reports: Hx Diabetes Mellitus Type 2 Renal/ Medical History: Denies: Hx Peritoneal Dialysis Past Surgical History: Reports: Hx Abdominal Surgery - CHOLECYSTECTOMY, Hx Cardiac Surgery - LVAD, Hx Section, Hx Cholecystectomy, Hx Hysterectomy, Hx Internal Defibrillator - secondary to bradycardia, per sophia castellon., Hx Pacemaker - Pacemaker/defibrillator defibrillator - Immunizations Immunizations up to date: Yes Hx Diphtheria, Pertussis, Tetanus Vaccination: Yes Review of Systems - Review of Systems Constitutional: Malaise, Weakness. denies: Chills, Fever Cardiovascular: denies: Chest pain, Palpitations Respiratory: denies: Cough, Short of breath Gastrointestinal: Nausea. denies: Abdominal pain -: Yes All other systems reviewed and negative Physical Exam - Vital signs Vitals: Temp Resp 97.1 F 23 H 04/08/19 15:35 04/08/19 15:35 Interpretation: Normal - General General appearance: Appears well, Alert - HEENT Head: Normocephalic, Atraumatic Eyes: Normal Pupils: PERRL - Respiratory Respiratory status: No respiratory distress Chest status: Nontender Breath sounds: Normal Chest palpation: Normal - Cardiovascular Rhythm: Regular Heart sounds: Normal auscultation Murmur: No - Abdominal Inspection: Normal Distension: No distension Bowel sounds: Normal Tenderness: Nontender Organomegaly: No organomegaly - Rectal Stool: Heme positive - Back Back: Normal, Nontender - Extremities General upper extremity: Normal inspection, Nontender, Normal color, Normal ROM, Normal temperature General lower extremity: Normal inspection, Nontender, Normal color, Normal ROM, Normal temperature, Normal weight bearing. No: Nadia's sign - Neurological Neuro grossly intact: Yes Cognition: Normal Orientation: AAOx4 Jose Coma Scale Eye Opening: Spontaneous [place] Coma Scale Verbal: Oriented [place] Coma Scale Motor: Obeys Commands [place] Coma Scale Total: 15 Speech: Normal Motor strength normal: LUE, RUE, LLE, RLE Sensory: Normal - Psychological Associated symptoms: Normal affect, Normal mood - Skin Skin Temperature: Warm Skin Moisture: Dry Skin Color: Normal Course - Re-evaluation Re-evalutation: 04/08/19 16:14 Patient's hemoglobin is 6.2. This is a significant decrease from 3 weeks ago and was 9.4. Patient has heme positive. She will be transfused 2 units. She will receive Protonix. She does not appear toxic or unstable at this time. She is not tachycardic. Her blood pressure is stable. I have discussed the case with the television mechanic at the [facility]. He has accepted the patient in transfer. They are currently working on a bed. Patient has been informed about the transfusion and need for transfer. She is in agreement. - Vital Signs Vital signs: Temp Pulse Resp BP Pulse Ox 97.1 F 18 97/52 L 04/08/19 15:35 04/08/19 16:00 04/08/19 16:00 - Laboratory Result Diagrams: 04/08/19 15:12 04/08/19 15:12 Laboratory results interpreted by me: 04/08/19 04/08/19 04/08/19 15:12 15:12 15:12 WBC 11.6 H RBC 2.86 L Hgb 6.2 L Hct 20.3 L MCV 71 L MCH 21.8 L MCHC 30.6 L RDW 21.6 H PT 24.2 H Sodium 133.7 L Glucose 281 H Lactic Acid AST 48 H Crossmatch 04/08/19 04/08/19 15:12 15:35 WBC RBC Hgb Hct MCV MCH MCHC RDW PT Sodium Glucose Lactic Acid 2.9 H AST Crossmatch See Detail Critical Care Note - Critical Care Note Total time excluding time spent on procedures (mins): 50 Comments: 50 minutes of critical care time were spent on this patient. This included reviewing multiple laboratories. Talking with consultants. Reviewing old records. Multiple reassessments of the patient. Discharge - Discharge Clinical Impression: Lower GI bleed Anemia Qualifiers: Anemia type: iron deficiency Iron deficiency anemia type: chronic blood loss Qualified Code(s): D50.0 - Iron deficiency anemia secondary to blood loss (chronic) Condition: Stable Disposition: [place] Referrals: MARCELO TANG PA-C [Primary Care Provider] - Follow up as needed
[2019-04-08 16:27] LABS: APPEARANCE,URINE SLIGHTLY-CLOUDY; BILIRUBIN,URINE NEGATIVE (NEGATIVE); COLOR,URINE YELLOW; GLUCOSE, URINE >=500 mg/dL (NEGATIVE); KETONES,URINE NEGATIVE (NEGATIVE); LEUKOCYTE ESTERASE,URINE TRACE (NEGATIVE); NITRITE,URINE NEGATIVE (NEGATIVE); PROTEIN,URINE NEGATIVE (NEGATIVE); UROBILINOGEN,URINE NEGATIVE mg/dL (<2.0)
[2019-04-08 16:34] LABS: VENOUS BLOOD HCO3 24.3 mmol/L (20-32); VENOUS BLOOD PCO2 37.9 mmHg (35-63); VENOUS BLOOD PH 7.43 (7.30-7.42)
--- NOTE | 2019-04-08 16:40 | ER Document Report ---
ED Dizziness/Weakness - General Chief Complaint: General Weakness Stated Complaint: WEAKNESS Time Seen by Provider: 04/08/19 15:03 Primary Care Provider: MARCELO TANG PA-C [Primary Care Provider] - Follow up as needed TRAVEL OUTSIDE OF THE [place] IN LAST 30 DAYS: No - Related Data Allergies/Adverse Reactions: amoxicillin [Amoxicillin] Allergy (Verified 04/08/19 14:46) Penicillins Allergy (Verified 04/08/19 14:46) Past Medical History - General Information source: Patient - Social History Smoking Status: Former Smoker Frequency of alcohol use: None Drug Abuse: None Family History: Reviewed & Not Pertinent - Past Medical History Cardiac Medical History: Reports: Hx Atrial Fibrillation, Hx Congestive Heart Failure, Hx Hypercholesterolemia Neurological Medical History: Denies: Hx Cerebrovascular Accident Endocrine Medical History: Reports: Hx Diabetes Mellitus Type 2 Renal/ Medical History: Denies: Hx Peritoneal Dialysis Past Surgical History: Reports: Hx Abdominal Surgery - CHOLECYSTECTOMY, Hx Cardiac Surgery - LVAD, Hx Section, Hx Cholecystectomy, Hx Hysterectomy, Hx Internal Defibrillator - secondary to bradycardia, per melly ent., Hx Pacemaker - Pacemaker/defibrillator defibrillator - Immunizations Immunizations up to date: Yes Hx Diphtheria, Pertussis, Tetanus Vaccination: Yes Physical Exam - Vital signs Vitals: Temp Resp 97.1 F 23 H 04/08/19 15:35 04/08/19 15:35 Course - Vital Signs Vital signs: Temp Pulse Resp BP Pulse Ox 97.1 F 18 97/52 L 04/08/19 15:35 04/08/19 16:00 04/08/19 16:00 - Laboratory Result Diagrams: 04/08/19 15:12 04/08/19 15:12 Laboratory results interpreted by me: 04/08/19 04/08/19 04/08/19 15:12 15:12 15:12 WBC 11.6 H RBC 2.86 L Hgb 6.2 L Hct 20.3 L MCV 71 L MCH 21.8 L MCHC 30.6 L RDW 21.6 H PT 24.2 H VBG pH Sodium 133.7 L Glucose 281 H Lactic Acid AST 48 H Urine Glucose (UA) Ur Leukocyte Esterase Crossmatch 04/08/19 04/08/19 04/08/19 15:12 15:35 15:35 WBC RBC Hgb Hct MCV MCH MCHC RDW PT VBG pH Sodium Glucose Lactic Acid 2.9 H AST Urine Glucose (UA) >=500 H Ur Leukocyte Esterase TRACE H Crossmatch See Detail 04/08/19 15:59 WBC RBC Hgb Hct MCV MCH MCHC RDW PT VBG pH 7.43 H Sodium Glucose Lactic Acid AST Urine Glucose (UA) Ur Leukocyte Esterase Crossmatch - EKG Interpretation by Ca EKG shows normal: Sinus rhythm Rate: Normal Rhythm: NSR [place]/QRS: IVCD Discharge - Discharge Clinical Impression: Lower GI bleed Anemia Qualifiers: Anemia type: iron deficiency Iron deficiency anemia type: chronic blood loss Qualified Code(s): D50.0 - Iron deficiency anemia secondary to blood loss (chronic) Condition: Stable Disposition: [place] Referrals: MARCELO TANG PA-C [Primary Care Provider] - Follow up as needed
--- NOTE | 2019-04-08 18:41 | EKG REPORT ---
SEVERITY:- ABNORMAL ECG - SINUS RHYTHM NONSPECIFIC IVCD WITH LAD LVH WITH SECONDARY REPOLARIZATION ABNORMALITY : Confirmed by: Marko Smith MD 08-Apr-2019 18:40:31
[2019-04-09 12:36] LABS: ABSOLUTE BASOPHILS # (AUTO) 0.1 10^3/uL (0.0-0.2); ABSOLUTE EOSINOPHILS # (AUTO) 0.1 10^3/uL (0.0-0.6); ABSOLUTE LYMPHOCYTES (AUTO) 1.8 10^3/uL (0.5-4.7); ABSOLUTE MONOCYTES (AUTO) 0.9 10^3/uL (0.1-1.4); BASOPHILS % (AUTO) 0.7 % (0-2); EOSINOPHILS % (AUTO) 1.4 % (0-6); HEMATOCRIT 20.8 % (36.0-47.0); LYMPHOCYTES % (AUTO) 19.9 % (13-45); MEAN CORPUSCULAR HEMOGLOBIN 25.3 pg (27.0-33.4); MEAN CORPUSCULAR HGB CONC 33.3 g/dL (32.0-36.0); MONOCYTES % (AUTO) 10.1 % (3-13); PLATELET COUNT 163 10^3/uL (150-450); RED BLOOD COUNT 2.74 10^6/uL (3.72-5.28); RED CELL DISTRIBUTION WIDTH 22.1 % (11.5-14.0); SEGMENTED NEUTROPHILS % (AUTO) 67.9 % (42-78); TOTAL CELLS COUNTED % (AUTO) 100 %; WHITE BLOOD COUNT 8.9 10^3/uL (4.0-10.5)
[2019-04-09 12:37] LABS: MEAN CORPUSCULAR VOLUME 76 fl (80-97)
[2019-04-09 12:41] LABS: HEMOGLOBIN 6.9 g/dL (12.0-15.5)
[2019-04-09 13:03] LABS: ANION GAP 7 (5-19); BLOOD UREA NITROGEN 11 mg/dL (7-20); CARBON DIOXIDE 24 mmol/L (22-30); CHLORIDE 106 mmol/L (98-107); GLUCOSE 326 mg/dL (75-110); POTASSIUM 4.1 mmol/L (3.6-5.0)
[2019-04-09] MEDS ORDERED: INSULIN REG, HUMAN 100 UNIT/ML 3 ML VIAL (PYX) IV ONE (14:23)
[2019-04-09 15:21] VITALS: BP 91/73
== END 2019-04-09 15:36 | disposition short-term general hospital (02) ==
LOC: ER 14:44
DX: K92.2 Gastrointestinal hemorrhage, unspecified (principal); D50.0 Iron deficiency anemia secondary to blood loss (chronic); I45.9 Conduction disorder, unspecified; R53.1 Weakness; E11.9 Type 2 diabetes mellitus without complications; Z88.0 Allergy status to penicillin; Z87.891 Personal history of nicotine dependence
CPT/HCPCS: 93005; 86900; 86901; 36415; 87040; 87086; 36430; 86850; 84703; 85025; 85610; 87070; 87088; 80048; 81001; 84484; 86920; 82803; 83605; 93010; P9016; S0164; J1815; 87186; 96374; 99285

== ENCOUNTER → 2019-04-08 | Outpatient (CLI) | payer MEDICAID ==
[2019-04-08 13:19] LABS: HEMATOCRIT 19.9 % (36.0-47.0); MEAN CORPUSCULAR HEMOGLOBIN 22.1 pg (27.0-33.4); MEAN CORPUSCULAR VOLUME 71 fl (80-97); PLATELET COUNT 224 10^3/uL (150-450); RED BLOOD COUNT 2.78 10^6/uL (3.72-5.28); RED CELL DISTRIBUTION WIDTH 21.9 % (11.5-14.0)
[2019-04-08 13:25] LABS: PROTHROMBIN TIME 22.9 SEC (11.4-15.4)
[2019-04-08 13:28] LABS: HEMOGLOBIN 6.2 g/dL (12.0-15.5)
[2019-04-08 13:40] LABS: ANION GAP 14 (5-19); BLOOD UREA NITROGEN 16 mg/dL (7-20); CALCIUM 8.6 mg/dL (8.4-10.2); CARBON DIOXIDE 23 mmol/L (22-30); CHLORIDE 96 mmol/L (98-107); CREATINE KINASE 50 U/L (30-135); GLUCOSE 285 mg/dL (75-110); POTASSIUM 4.2 mmol/L (3.6-5.0)
== END ==
LOC: OD 12:34
PROVIDERS: ATTEND Internal Medicine Advanced Heart Failure and Transplant Cardiology
DX: I50.9 Heart failure, unspecified (principal); Z79.01 Long term (current) use of anticoagulants; Z79.899 Other long term (current) drug therapy; Z95.811 Presence of heart assist device
CPT/HCPCS: 36415; 80048; 82550; 85027; 85610

== ENCOUNTER → 2019-04-23 | Outpatient (CLI) | payer MEDICAID ==
[2019-04-23 10:30] LABS: HEMATOCRIT 23.4 % (36.0-47.0); MEAN CORPUSCULAR HEMOGLOBIN 23.3 pg (27.0-33.4); MEAN CORPUSCULAR HGB CONC 31.7 g/dL (32.0-36.0); MEAN CORPUSCULAR VOLUME 74 fl (80-97); PLATELET COUNT 271 10^3/uL (150-450); RED BLOOD COUNT 3.19 10^6/uL (3.72-5.28); RED CELL DISTRIBUTION WIDTH 25.2 % (11.5-14.0); WHITE BLOOD COUNT 9.4 10^3/uL (4.0-10.5)
[2019-04-23 10:38] LABS: PROTHROMBIN TIME 17.3 SEC (11.4-15.4)
[2019-04-23 10:44] LABS: HEMOGLOBIN 7.4 g/dL (12.0-15.5)
[2019-04-23 10:53] LABS: BLOOD UREA NITROGEN 7 mg/dL (7-20); CALCIUM 9.2 mg/dL (8.4-10.2); GLUCOSE 280 mg/dL (75-110)
[2019-04-23 10:54] LABS: ANION GAP 9 (5-19); CARBON DIOXIDE 26 mmol/L (22-30); CHLORIDE 103 mmol/L (98-107)
[2019-04-23 10:59] LABS: ANISOCYTOSIS 3+; POIKILOCYTOSIS SLIGHT; POLYCHROMASIA SLIGHT
[2019-04-23 11:00] LABS: HYPOCHROMASIA 1+; OVALOCYTES SLIGHT; PLATELET COMMENT ADEQUATE
== END ==
LOC: OD 09:49
PROVIDERS: ATTEND Internal Medicine Advanced Heart Failure and Transplant Cardiology
DX: I50.9 Heart failure, unspecified (principal); Z79.01 Long term (current) use of anticoagulants; Z79.899 Other long term (current) drug therapy; Z95.811 Presence of heart assist device
CPT/HCPCS: 36415; 80048; 85025; 85610

== ENCOUNTER → 2019-04-25 | Outpatient (CLI) | payer MEDICAID ==
[2019-04-25 12:35] LABS: HEMATOCRIT 24.3 % (36.0-47.0); MEAN CORPUSCULAR HEMOGLOBIN 23.2 pg (27.0-33.4); MEAN CORPUSCULAR HGB CONC 31.9 g/dL (32.0-36.0); MEAN CORPUSCULAR VOLUME 73 fl (80-97); PLATELET COUNT 259 10^3/uL (150-450); RED BLOOD COUNT 3.35 10^6/uL (3.72-5.28); RED CELL DISTRIBUTION WIDTH 25.9 % (11.5-14.0); WHITE BLOOD COUNT 10.2 10^3/uL (4.0-10.5)
[2019-04-25 12:43] LABS: HEMOGLOBIN 7.8 g/dL (12.0-15.5)
== END ==
LOC: OD 11:51
PROVIDERS: ATTEND Internal Medicine Advanced Heart Failure and Transplant Cardiology
DX: I50.9 Heart failure, unspecified (principal); Z79.899 Other long term (current) drug therapy; Z95.811 Presence of heart assist device; Z79.01 Long term (current) use of anticoagulants
CPT/HCPCS: 36415; 85027

== ENCOUNTER → 2019-05-01 | Outpatient (CLI) | payer MEDICAID ==
[2019-05-01 11:20] LABS: INTERNATIONAL RATION (INR) 1.37
[2019-05-01 11:28] LABS: HEMATOCRIT 26.7 % (36.0-47.0); HEMOGLOBIN 8.4 g/dL (12.0-15.5); MEAN CORPUSCULAR HEMOGLOBIN 21.8 pg (27.0-33.4); MEAN CORPUSCULAR HGB CONC 31.3 g/dL (32.0-36.0); MEAN CORPUSCULAR VOLUME 70 fl (80-97); PLATELET COUNT 234 10^3/uL (150-450); RED BLOOD COUNT 3.82 10^6/uL (3.72-5.28); RED CELL DISTRIBUTION WIDTH 27.8 % (11.5-14.0); WHITE BLOOD COUNT 8.9 10^3/uL (4.0-10.5)
[2019-05-01 11:42] LABS: ANION GAP 13 (5-19); BLOOD UREA NITROGEN 12 mg/dL (7-20); CARBON DIOXIDE 23 mmol/L (22-30); CHLORIDE 98 mmol/L (98-107); GLUCOSE 389 mg/dL (75-110); POTASSIUM 4.2 mmol/L (3.6-5.0)
== END ==
LOC: OD 10:42
PROVIDERS: ATTEND Internal Medicine Advanced Heart Failure and Transplant Cardiology
DX: I50.9 Heart failure, unspecified (principal); Z79.01 Long term (current) use of anticoagulants; Z79.899 Other long term (current) drug therapy; Z95.811 Presence of heart assist device
CPT/HCPCS: 36415; 80048; 85027; 85610

== ENCOUNTER → 2019-05-08 | Outpatient (CLI) | payer MEDICAID ==
[2019-05-08 10:17] LABS: HEMATOCRIT 28.4 % (36.0-47.0); HEMOGLOBIN 8.7 g/dL (12.0-15.5); MEAN CORPUSCULAR HEMOGLOBIN 20.4 pg (27.0-33.4); MEAN CORPUSCULAR HGB CONC 30.6 g/dL (32.0-36.0); MEAN CORPUSCULAR VOLUME 67 fl (80-97); PLATELET COUNT 238 10^3/uL (150-450); RED BLOOD COUNT 4.25 10^6/uL (3.72-5.28); RED CELL DISTRIBUTION WIDTH 28.4 % (11.5-14.0); WHITE BLOOD COUNT 9.4 10^3/uL (4.0-10.5)
[2019-05-08 10:29] LABS: INTERNATIONAL RATION (INR) 2.31
[2019-05-08 10:30] LABS: PROTHROMBIN TIME 25.8 SEC (11.4-15.4)
[2019-05-08 10:35] LABS: ANION GAP 11 (5-19); BLOOD UREA NITROGEN 15 mg/dL (7-20); CALCIUM 9.5 mg/dL (8.4-10.2); CARBON DIOXIDE 25 mmol/L (22-30); CHLORIDE 103 mmol/L (98-107); GLUCOSE 286 mg/dL (75-110); POTASSIUM 4.4 mmol/L (3.6-5.0)
== END ==
LOC: OD 09:51
PROVIDERS: ATTEND Internal Medicine Advanced Heart Failure and Transplant Cardiology
DX: Z79.01 Long term (current) use of anticoagulants (principal); Z79.899 Other long term (current) drug therapy; Z95.811 Presence of heart assist device
CPT/HCPCS: 36415; 80048; 85027; 85610

== ENCOUNTER → 2019-05-21 | Outpatient (CLI) | payer MEDICAID ==
[2019-05-21 17:12] LABS: HEMATOCRIT 24.4 % (36.0-47.0); MEAN CORPUSCULAR HEMOGLOBIN 19.7 pg (27.0-33.4); MEAN CORPUSCULAR HGB CONC 30.9 g/dL (32.0-36.0); MEAN CORPUSCULAR VOLUME 64 fl (80-97); PLATELET COUNT 243 10^3/uL (150-450); RED BLOOD COUNT 3.84 10^6/uL (3.72-5.28); RED CELL DISTRIBUTION WIDTH 28.4 % (11.5-14.0); WHITE BLOOD COUNT 8.3 10^3/uL (4.0-10.5)
[2019-05-21 17:27] LABS: INTERNATIONAL RATION (INR) 2.58; PROTHROMBIN TIME 28.2 SEC (11.4-15.4)
[2019-05-21 17:28] LABS: ANION GAP 10 (5-19); BLOOD UREA NITROGEN 9 mg/dL (7-20); CALCIUM 8.8 mg/dL (8.4-10.2); CARBON DIOXIDE 22 mmol/L (22-30); CHLORIDE 106 mmol/L (98-107); GLUCOSE 256 mg/dL (75-110); POTASSIUM 3.9 mmol/L (3.6-5.0)
[2019-05-21 17:56] LABS: HEMOGLOBIN 7.5 g/dL (12.0-15.5)
== END ==
LOC: OD 16:26
PROVIDERS: ATTEND Internal Medicine Advanced Heart Failure and Transplant Cardiology
DX: I50.9 Heart failure, unspecified (principal); Z79.01 Long term (current) use of anticoagulants; Z79.899 Other long term (current) drug therapy; Z95.811 Presence of heart assist device
CPT/HCPCS: 36415; 80048; 85027; 85610

== ENCOUNTER → 2019-06-16 | Outpatient (CLI) | payer MEDICAID ==
[2019-06-16 17:09] LABS: INTERNATIONAL RATION (INR) 3.63
[2019-06-16 17:23] LABS: ANION GAP 12 (5-19); BLOOD UREA NITROGEN 7 mg/dL (7-20); CALCIUM 9.2 mg/dL (8.4-10.2); CARBON DIOXIDE 22 mmol/L (22-30); CHLORIDE 106 mmol/L (98-107); GLUCOSE 231 mg/dL (75-110); POTASSIUM 4.4 mmol/L (3.6-5.0)
== END ==
LOC: OD 16:17
PROVIDERS: ATTEND Internal Medicine Advanced Heart Failure and Transplant Cardiology
DX: I50.9 Heart failure, unspecified (principal); Z79.01 Long term (current) use of anticoagulants; Z79.899 Other long term (current) drug therapy; Z95.811 Presence of heart assist device
CPT/HCPCS: 36415; 80048; 85610

== ENCOUNTER → 2019-07-01 | Outpatient (CLI) | payer MEDICAID ==
[2019-07-01 17:17] LABS: INTERNATIONAL RATION (INR) 1.62; PROTHROMBIN TIME 19.4 SEC (11.4-15.4)
[2019-07-01 17:37] LABS: ALBUMIN 4.3 g/dL (3.5-5.0); ALKALINE PHOSPHATASE 152 U/L (38-126); ANION GAP 12 (5-19); ASPARTATE AMINO TRANSFERASE 77 U/L (14-36); BILIRUBIN,DIRECT 0.2 mg/dL (0.0-0.4); BLOOD UREA NITROGEN 17 mg/dL (7-20); CALCIUM 9.2 mg/dL (8.4-10.2); CARBON DIOXIDE 24 mmol/L (22-30); CHLORIDE 100 mmol/L (98-107); GLUCOSE 269 mg/dL (75-110); IRON(TIBC) 37.3 ug/dL (37-170); POTASSIUM 3.8 mmol/L (3.6-5.0); TOTAL PROTEIN 8.3 g/dL (6.3-8.2)
== END ==
LOC: OD 16:10
PROVIDERS: ATTEND Internal Medicine Advanced Heart Failure and Transplant Cardiology
DX: I50.9 Heart failure, unspecified (principal); D64.9 Anemia, unspecified; Z79.01 Long term (current) use of anticoagulants; Z79.899 Other long term (current) drug therapy; Z95.811 Presence of heart assist device
CPT/HCPCS: 36415; 80053; 82728; 83540; 83550; 85610

== ENCOUNTER → 2019-07-10 | Outpatient (CLI) | payer MEDICAID ==
[2019-07-10 14:53] LABS: INTERNATIONAL RATION (INR) 2.56
[2019-07-10 14:56] LABS: ANION GAP 11 (5-19); BLOOD UREA NITROGEN 6 mg/dL (7-20); CARBON DIOXIDE 22 mmol/L (22-30); CHLORIDE 108 mmol/L (98-107); GLUCOSE 327 mg/dL (75-110); POTASSIUM 3.8 mmol/L (3.6-5.0)
[2019-07-10 15:19] LABS: HEMATOCRIT 28.1 % (36.0-47.0); HEMOGLOBIN 8.4 g/dL (12.0-15.5); MEAN CORPUSCULAR HEMOGLOBIN 17.8 pg (27.0-33.4); MEAN CORPUSCULAR HGB CONC 29.8 g/dL (32.0-36.0); PLATELET COUNT 174 10^3/uL (150-450); RED CELL DISTRIBUTION WIDTH 25.9 % (11.5-14.0); WHITE BLOOD COUNT 9.8 10^3/uL (4.0-10.5)
[2019-07-10 15:21] LABS: RED BLOOD COUNT 4.72 10^6/uL (3.72-5.28)
[2019-07-10 15:22] LABS: MEAN CORPUSCULAR VOLUME 60 fl (80-97)
[2019-07-11 12:00] LABS: PATH REVIEW PATHOLOGIST REVIEWED
== END ==
LOC: OD 14:02
PROVIDERS: ATTEND Internal Medicine Advanced Heart Failure and Transplant Cardiology
DX: I50.9 Heart failure, unspecified (principal); Z79.01 Long term (current) use of anticoagulants; Z79.899 Other long term (current) drug therapy; Z95.811 Presence of heart assist device
CPT/HCPCS: 36415; 80048; 85027; 85610

== ENCOUNTER → 2019-07-22 | Outpatient (CLI) | payer MEDICAID ==
[2019-07-22 14:25] LABS: INTERNATIONAL RATION (INR) 2.78; PROTHROMBIN TIME 29.9 SEC (11.4-15.4)
[2019-07-22 14:36] LABS: ANION GAP 13 (5-19); BLOOD UREA NITROGEN 5 mg/dL (7-20); CALCIUM 9.2 mg/dL (8.4-10.2); CARBON DIOXIDE 23 mmol/L (22-30); CHLORIDE 104 mmol/L (98-107); GLUCOSE 277 mg/dL (75-110); POTASSIUM 4.5 mmol/L (3.6-5.0)
== END ==
LOC: OD 13:09
PROVIDERS: ATTEND Internal Medicine Advanced Heart Failure and Transplant Cardiology
DX: I50.9 Heart failure, unspecified (principal); Z79.01 Long term (current) use of anticoagulants; Z79.899 Other long term (current) drug therapy; Z95.811 Presence of heart assist device
CPT/HCPCS: 36415; 80048; 85610

== ENCOUNTER → 2019-08-14 | Outpatient (CLI) | payer MEDICAID ==
[2019-08-14 16:44] LABS: INTERNATIONAL RATION (INR) 1.89
== END ==
LOC: OD 16:05
PROVIDERS: ATTEND Internal Medicine Advanced Heart Failure and Transplant Cardiology
DX: I50.9 Heart failure, unspecified (principal); Z79.01 Long term (current) use of anticoagulants; Z79.899 Other long term (current) drug therapy; Z95.811 Presence of heart assist device
CPT/HCPCS: 36415; 85610

== ENCOUNTER 2019-08-19 23:41 | Emergency (ER) | payer MEDICAID ==
[2019-08-20 00:03] VITALS: BP 98/25
[2019-08-20] MEDS ORDERED: MORPHINE SULFATE 10 MG/ML INJ IV ONE (01:34)
[2019-08-20] MEDS ORDERED: ONDANSETRON HCL INJ/PF 4 MG/2 ML SDV IV ONE (01:34)
--- NOTE | 2019-08-20 02:06 | ER Document Report ---
ED General - General Chief Complaint: Leg Pain Stated Complaint: LEFT LEG PAINS Time Seen by Provider: 08/20/19 00:40 Primary Care Provider: NICOLE BROWN MD [Primary Care Provider] - Follow up as needed TRAVEL OUTSIDE OF THE U.S. IN LAST 30 DAYS: No - HPI Notes: Person is a 49-year-old female with a history of LVAD placement, CVA, who presents to the emergency department for evaluation of left leg pain. She states she has pain in the front and the back of her left leg. It started while she was resting in bed. She states that began about 2 days ago and is progressively gotten worse. She states it hurts to move. She describes it as a sharp pain. She states she is tried "massaging it out" without any significant relief. She denies any injury. No numbness or tingling. No weakness. No bowel or bladder incontinence. She denies any pain in her back. She states that the pain seems to radiate below the knee, but is not tender in that area. No skin changes, no fevers or chills. - Related Data Allergies/Adverse Reactions: amoxicillin [Amoxicillin] Allergy (Verified 07/15/19 10:34) Penicillins Allergy (Verified 07/15/19 10:34) Home Medications: Coumadin Past Medical History - General Information source: Patient - Social History Smoking Status: Former Smoker Family History: Reviewed & Not Pertinent Patient has suicidal ideation: No Patient has homicidal ideation: No - Past Medical History Cardiac Medical History: Reports: Hx Atrial Fibrillation, Hx Congestive Heart Failure, Hx Hypercholesterolemia Neurological Medical History: Denies: Hx Cerebrovascular Accident Endocrine Medical History: Reports: Hx Diabetes Mellitus Type 2 Renal/ Medical History: Denies: Hx Peritoneal Dialysis Past Surgical History: Reports: Hx Abdominal Surgery - CHOLECYSTECTOMY, Hx Cardiac Surgery - LVAD, Hx Section, Hx Cholecystectomy, Hx Hysterectomy, Hx Internal Defibrillator - secondary to bradycardia, per patient., Hx Pacemaker - Pacemaker/defibrillator defibrillator - Immunizations Immunizations up to date: Yes Hx Diphtheria, Pertussis, Tetanus Vaccination: Yes Review of Systems - Review of Systems Constitutional: No symptoms reported EENT: No symptoms reported Cardiovascular: No symptoms reported Respiratory: No symptoms reported Gastrointestinal: No symptoms reported Genitourinary: No symptoms reported Musculoskeletal: See HPI Skin: No symptoms reported Neurological/Psychological: No symptoms reported Physical Exam - Vital signs Vitals: Temp Pulse Resp BP Pulse Ox 98.3 F 74 20 98/25 L 96 08/20/19 00:01 08/20/19 00:01 08/20/19 00:01 08/20/19 00:01 08/20/19 00:01 - Notes Notes: This is an obese 49-year-old female who appears her stated age in no acute distress. Vital signs reviewed, please refer to chart. Head is normocephalic, atraumatic. Pupils equal round, reactive to light. Neck is supple without meningismus. Lungs are clear to auscultation bilaterally. Abdomen is soft, nontender, normoactive bowel sounds throughout. Driveline site is clean and dry, no erythema surrounding. Extremities without cyanosis, clubbing. Examination of the left lower extremity yields no obvious abnormality. She has full range of motion at the hip, knee, ankle, toes. Sensation is intact. She is tender to palpation over the anterior quadriceps, some of the lateral hamstring muscles. No posterior calf tenderness. Skin is warm and dry. Course - Re-evaluation Re-evalutation: 08/20/19 04:10 Patient is a 49-year-old female who presents to the emergency department for evaluation of left lower extremity pain. Her pain seems most consistent with musculoskeletal pain. She is neurovascularly intact distally. Her laboratory investigations failed to reveal any significant abnormality, I do not see any signs of infection. She is on Coumadin her INR is therapeutic. She has no posterior calf pain, so I am not concerned about a DVT. She is feeling better with some morphine. I will send her home with a small amount of [place] and close follow-up. She is to return to the ED with worsening. - Vital Signs Vital signs: Temp Pulse Resp BP Pulse Ox 97.9 F 74 20 98/25 L 97 08/20/19 04:00 08/20/19 00:01 08/20/19 03:00 08/20/19 00:01 08/20/19 03:00 - Laboratory Result Diagrams: 08/20/19 02:17 08/20/19 02:17 Laboratory results interpreted by me: 08/20/19 08/20/19 08/20/19 02:17 02:17 02:17 Hgb 10.8 L Hct 34.9 L MCV 76 L MCH 23.5 L MCHC 31.0 L RDW 31.9 H PT 24.2 H Glucose 262 H AST 45 H Alkaline Phosphatase 142 H Discharge - Discharge Clinical Impression: Left leg pain Condition: Stable Disposition: HOME, SELF-CARE Instructions: Leg Pain Nonspecific ([facility]) Additional Instructions: No clear cause was found your pain today. Please follow-up closely with primary care and your LVAD coordinator. Return to the ED with worsening or new c oncerning symptoms of any sort. Referrals: NICOLE BROWN MD [Primary Care Provider] - Follow up as needed
[2019-08-20 02:33] LABS: INTERNATIONAL RATION (INR) 2.13; PROTHROMBIN TIME 24.2 SEC (11.4-15.4)
[2019-08-20 02:38] LABS: ALKALINE PHOSPHATASE 142 U/L (38-126); ANION GAP 10 (5-19); ASPARTATE AMINO TRANSFERASE 45 U/L (14-36); BILIRUBIN,DIRECT 0.1 mg/dL (0.0-0.4); BILIRUBIN,TOTAL 0.5 mg/dL (0.2-1.3); BLOOD UREA NITROGEN 9 mg/dL (7-20); CALCIUM 8.8 mg/dL (8.4-10.2); CARBON DIOXIDE 23 mmol/L (22-30); CHLORIDE 105 mmol/L (98-107); GLUCOSE 262 mg/dL (75-110); POTASSIUM 3.9 mmol/L (3.6-5.0); TOTAL PROTEIN 7.3 g/dL (6.3-8.2)
[2019-08-20 02:52] LABS: ABSOLUTE EOSINOPHILS # (AUTO) 0.1 10^3/uL (0.0-0.6); ABSOLUTE LYMPHOCYTES (AUTO) 1.3 10^3/uL (0.5-4.7); ABSOLUTE MONOCYTES (AUTO) 0.6 10^3/uL (0.1-1.4); ABSOLUTE NEUT (AUTO) 5.2 10^3/uL (1.7-8.2); BASOPHILS % (AUTO) 0.6 % (0-2); EOSINOPHILS % (AUTO) 1.3 % (0-6); HEMATOCRIT 34.9 % (36.0-47.0); HEMOGLOBIN 10.8 g/dL (12.0-15.5); LYMPHOCYTES % (AUTO) 17.7 % (13-45); MEAN CORPUSCULAR HEMOGLOBIN 23.5 pg (27.0-33.4); MEAN CORPUSCULAR VOLUME 76 fl (80-97); MONOCYTES % (AUTO) 7.7 % (3-13); PLATELET COUNT 171 10^3/uL (150-450); RED BLOOD COUNT 4.61 10^6/uL (3.72-5.28); RED CELL DISTRIBUTION WIDTH 31.9 % (11.5-14.0); SEGMENTED NEUTROPHILS % (AUTO) 72.7 % (42-78); TOTAL CELLS COUNTED % (AUTO) 100 %; WHITE BLOOD COUNT 7.2 10^3/uL (4.0-10.5)
[2019-08-20 02:58] LABS: ANISOCYTOSIS 4+
[2019-08-20 03:00] LABS: HYPOCHROMASIA SLIGHT; OVALOCYTES 1+
[2019-08-20 03:01] LABS: TARGET CELLS SLIGHT
[2019-08-20 03:02] LABS: SCHISTOCYTES SLIGHT; TEAR DROP CELLS SLIGHT
[2019-08-20 03:04] LABS: PLATELET COMMENT ADEQUATE; POLYCHROMASIA SLIGHT
[2019-08-20] MEDS ORDERED: HYDROCODONE/ACETAMINOPHEN 5-325 MG (6 TAB/ER DISP) PO PRN (04:10)
== END 2019-08-20 04:00 | disposition home or self-care (01) ==
LOC: ER 23:41
DX: M79.605 Pain in left leg (principal); Z87.891 Personal history of nicotine dependence; I50.9 Heart failure, unspecified; E11.9 Type 2 diabetes mellitus without complications
CPT/HCPCS: 36415; 82550; 85025; 85610; 80053; J2270; J2405; 96374; 96375; 99283

== ENCOUNTER → 2019-09-09 | Outpatient (CLI) | payer MEDICAID ==
[2019-09-09 09:22] LABS: INTERNATIONAL RATION (INR) 2.45
[2019-09-09 09:31] LABS: ANION GAP 10 (5-19); BLOOD UREA NITROGEN 14 mg/dL (7-20); CALCIUM 9.5 mg/dL (8.4-10.2); CARBON DIOXIDE 25 mmol/L (22-30); CHLORIDE 104 mmol/L (98-107); GLUCOSE 257 mg/dL (75-110); POTASSIUM 3.8 mmol/L (3.6-5.0)
== END ==
LOC: OD 08:35
PROVIDERS: ATTEND Internal Medicine Advanced Heart Failure and Transplant Cardiology
DX: I50.9 Heart failure, unspecified (principal); Z79.01 Long term (current) use of anticoagulants; Z79.899 Other long term (current) drug therapy; Z95.811 Presence of heart assist device
CPT/HCPCS: 36415; 80048; 85610

== ENCOUNTER → 2019-09-24 | Outpatient (CLI) | payer MEDICAID ==
[2019-09-24 12:40] LABS: PROTHROMBIN TIME 47.1 SEC (11.4-15.4)
[2019-09-24 13:01] LABS: ANION GAP 14 (5-19); BLOOD UREA NITROGEN 11 mg/dL (7-20); CALCIUM 9.3 mg/dL (8.4-10.2); CARBON DIOXIDE 24 mmol/L (22-30); CHLORIDE 98 mmol/L (98-107)
[2019-09-24 13:14] LABS: GLUCOSE 424 mg/dL (75-110)
== END ==
LOC: OD 12:13
PROVIDERS: ATTEND Internal Medicine Advanced Heart Failure and Transplant Cardiology
DX: I50.9 Heart failure, unspecified (principal); Z79.01 Long term (current) use of anticoagulants; Z79.899 Other long term (current) drug therapy; Z95.811 Presence of heart assist device
CPT/HCPCS: 36415; 80048; 85610

== ENCOUNTER → 2019-10-07 | Outpatient (CLI) | payer MEDICAID ==
[2019-10-07 14:34] LABS: INTERNATIONAL RATION (INR) 2.26; PROTHROMBIN TIME 25.3 SEC (11.4-15.4)
[2019-10-07 14:54] LABS: ANION GAP 13 (5-19); BLOOD UREA NITROGEN 13 mg/dL (7-20); CALCIUM 8.9 mg/dL (8.4-10.2); CARBON DIOXIDE 20 mmol/L (22-30); CHLORIDE 106 mmol/L (98-107); POTASSIUM 3.9 mmol/L (3.6-5.0)
[2019-10-07 14:56] LABS: GLUCOSE 157 mg/dL (75-110)
== END ==
LOC: OD 13:53
PROVIDERS: ATTEND Internal Medicine Advanced Heart Failure and Transplant Cardiology
DX: I50.9 Heart failure, unspecified (principal); Z79.01 Long term (current) use of anticoagulants; Z79.899 Other long term (current) drug therapy; Z95.811 Presence of heart assist device
CPT/HCPCS: 36415; 80048; 85610

== ENCOUNTER → 2019-11-04 | Outpatient (CLI) | payer MEDICAID ==
[2019-11-04 15:19] LABS: INTERNATIONAL RATION (INR) 1.45; PROTHROMBIN TIME 17.8 SEC (11.4-15.4)
== END ==
LOC: OD 14:51
PROVIDERS: ATTEND Internal Medicine Advanced Heart Failure and Transplant Cardiology
DX: I50.9 Heart failure, unspecified (principal); Z79.899 Other long term (current) drug therapy; Z79.01 Long term (current) use of anticoagulants; Z95.811 Presence of heart assist device
CPT/HCPCS: 36415; 85610

== ENCOUNTER → 2019-11-11 | Outpatient (CLI) | payer MEDICAID ==
[2019-11-11 08:38] LABS: INTERNATIONAL RATION (INR) 1.52; PROTHROMBIN TIME 18.4 SEC (11.4-15.4)
== END ==
LOC: OD 07:30
PROVIDERS: ATTEND Internal Medicine Advanced Heart Failure and Transplant Cardiology
DX: I50.9 Heart failure, unspecified (principal); Z79.01 Long term (current) use of anticoagulants; Z79.899 Other long term (current) drug therapy; Z95.811 Presence of heart assist device
CPT/HCPCS: 36415; 85610

== ENCOUNTER → 2019-11-26 | Outpatient (CLI) | payer MEDICAID ==
[2019-11-26 15:11] LABS: INTERNATIONAL RATION (INR) 1.21; PROTHROMBIN TIME 15.4 SEC (11.4-15.4)
[2019-11-26 15:44] LABS: ANION GAP 10 (5-19); BLOOD UREA NITROGEN 10 mg/dL (7-20); CALCIUM 9.4 mg/dL (8.4-10.2); CARBON DIOXIDE 26 mmol/L (22-30); CHLORIDE 102 mmol/L (98-107); GLUCOSE 190 mg/dL (75-110); POTASSIUM 4.2 mmol/L (3.6-5.0)
== END ==
LOC: OD 14:40
PROVIDERS: ATTEND Internal Medicine Advanced Heart Failure and Transplant Cardiology
DX: I50.9 Heart failure, unspecified (principal); Z79.899 Other long term (current) drug therapy; Z79.01 Long term (current) use of anticoagulants; Z95.811 Presence of heart assist device
CPT/HCPCS: 36415; 80048; 85610

== ENCOUNTER → 2019-12-08 | Outpatient (CLI) | payer MEDICAID ==
[2019-12-08 15:42] LABS: INTERNATIONAL RATION (INR) 2.22
== END ==
LOC: OD 14:56
PROVIDERS: ATTEND Internal Medicine Advanced Heart Failure and Transplant Cardiology
DX: I50.9 Heart failure, unspecified (principal); Z79.01 Long term (current) use of anticoagulants; Z79.899 Other long term (current) drug therapy; Z95.811 Presence of heart assist device
CPT/HCPCS: 36415; 85610

== ENCOUNTER → 2019-12-25 | Outpatient (CLI) | payer MEDICAID | LOC: OD 12:20 | PROVIDERS: ATTEND Internal Medicine Advanced Heart Failure and Transplant Cardiology | DX: Z79.01 Long term (current) use of anticoagulants (principal); Z79.899 Other long term (current) drug therapy; Z95.811 Presence of heart assist device | CPT/HCPCS: 36415; 85610 ==

== ENCOUNTER → 2020-01-16 | Outpatient (CLI) | payer MEDICAID ==
[2020-01-16 15:02] LABS: HEMATOCRIT 31.8 % (36.0-47.0); HEMOGLOBIN 10.4 g/dL (12.0-15.5); MEAN CORPUSCULAR HEMOGLOBIN 23.9 pg (27.0-33.4); MEAN CORPUSCULAR HGB CONC 32.6 g/dL (32.0-36.0); MEAN CORPUSCULAR VOLUME 73 fl (80-97); PLATELET COUNT 294 10^3/uL (150-450); RED BLOOD COUNT 4.35 10^6/uL (3.72-5.28); RED CELL DISTRIBUTION WIDTH 21.1 % (11.5-14.0); WHITE BLOOD COUNT 6.5 10^3/uL (4.0-10.5)
[2020-01-16 15:08] LABS: INTERNATIONAL RATION (INR) 2.39; PROTHROMBIN TIME 26.5 SEC (11.4-15.4)
[2020-01-16 15:23] LABS: ANION GAP 8 (5-19); BLOOD UREA NITROGEN 8 mg/dL (7-20); CALCIUM 8.3 mg/dL (8.4-10.2); CARBON DIOXIDE 24 mmol/L (22-30); CHLORIDE 105 mmol/L (98-107); GLUCOSE 128 mg/dL (75-110); POTASSIUM 3.8 mmol/L (3.6-5.0)
== END ==
LOC: OD 14:28
PROVIDERS: ATTEND Internal Medicine Advanced Heart Failure and Transplant Cardiology
DX: I50.9 Heart failure, unspecified (principal); Z79.01 Long term (current) use of anticoagulants; Z79.899 Other long term (current) drug therapy; Z95.811 Presence of heart assist device
CPT/HCPCS: 36415; 80048; 85027; 85610

== ENCOUNTER → 2020-02-03 | Outpatient (CLI) | payer MEDICAID ==
[2020-02-03 14:41] LABS: INTERNATIONAL RATION (INR) 3.73; PROTHROMBIN TIME 37.9 SEC (11.4-15.4)
[2020-02-03 14:42] LABS: HEMATOCRIT 30.7 % (36.0-47.0); HEMOGLOBIN 9.9 g/dL (12.0-15.5); MEAN CORPUSCULAR HEMOGLOBIN 23.4 pg (27.0-33.4); MEAN CORPUSCULAR HGB CONC 32.2 g/dL (32.0-36.0); MEAN CORPUSCULAR VOLUME 73 fl (80-97); PLATELET COUNT 253 10^3/uL (150-450); RED BLOOD COUNT 4.21 10^6/uL (3.72-5.28); RED CELL DISTRIBUTION WIDTH 21.6 % (11.5-14.0); WHITE BLOOD COUNT 7.9 10^3/uL (4.0-10.5)
[2020-02-03 17:17] LABS: ALBUMIN 3.5 g/dL (3.5-5.0); ALKALINE PHOSPHATASE 126 U/L (38-126); ANION GAP 8 (5-19); ASPARTATE AMINO TRANSFERASE 40 U/L (14-36); BILIRUBIN,DIRECT 0.1 mg/dL (0.0-0.4); BILIRUBIN,TOTAL 0.9 mg/dL (0.2-1.3); BLOOD UREA NITROGEN 7 mg/dL (7-20); CALCIUM 8.5 mg/dL (8.4-10.2); CARBON DIOXIDE 25 mmol/L (22-30); CHLORIDE 105 mmol/L (98-107); GLUCOSE 285 mg/dL (75-110); IRON(TIBC) 35.2 ug/dL (37-170); POTASSIUM 3.5 mmol/L (3.6-5.0); TOTAL PROTEIN 7.4 g/dL (6.3-8.2)
== END ==
LOC: OD 13:51
PROVIDERS: ATTEND Internal Medicine Advanced Heart Failure and Transplant Cardiology
DX: I50.9 Heart failure, unspecified (principal); Z79.01 Long term (current) use of anticoagulants; Z79.899 Other long term (current) drug therapy; Z95.811 Presence of heart assist device
CPT/HCPCS: 36415; 80053; 82728; 83540; 83550; 85027; 85610

== ENCOUNTER 2020-02-11 12:45 | Emergency (ER) | payer MEDICAID ==
[2020-02-11 13:02] VITALS: BP 70/43
[2020-02-11] MEDS ORDERED: ACETAMINOPHEN 325 MG TABLET PO ONE (13:14)
--- NOTE | 2020-02-11 13:17 | ER Document Report ---
ED Medical Screen (RME) - General Mode of Arrival: Wheelchair Information source: Patient TRAVEL OUTSIDE OF THE [place] IN LAST 30 DAYS: No - General Chief Complaint: Fever Stated Complaint: COUGH Time Seen by Provider: 02/11/20 13:09 Primary Care Provider: NICOLE BROWN MD [Primary Care Provider] - Follow up as needed Notes: Patient presents complaining of bringing up mucus and phlegm and having left side abdominal pain with a fever of 103 yesterday. Patient denies any cough or vomiting. Patient denies any nausea vomiting or diarrhea. Patient does have congestive heart failure and has an LVAD. Patient denies being around anyone who is been sick recently although is requesting a COVID test. I have greeted and performed a rapid initial assessment of this patient. A comprehensive ED assessment and evaluation of the patient, analysis of test results and completion of the medical decision making process will be conducted by additional ED providers. (MUSA ORELLANA) - Related Data Allergies/Adverse Reactions: amoxicillin [Amoxicillin] Allergy (Verified 07/15/19 10:34) Penicillins Allergy (Verified 07/15/19 10:34) Past Medical History - Past Medical History Cardiac Medical History: Reports: Hx Atrial Fibrillation, Hx Congestive Heart Failure, Hx Hypercholesterolemia Neurological Medical History: Denies: Hx Cerebrovascular Accident Endocrine Medical History: Reports: Hx Diabetes Mellitus Type 2 Renal/ Medical History: Denies: Hx Peritoneal Dialysis Past Surgical History: Reports: Hx Abdominal Surgery - CHOLECYSTECTOMY, Hx Cardiac Surgery - LVAD, Hx Section, Hx Cholecystectomy, Hx Hysterectomy, Hx Internal Defibrillator - secondary to bradycardia, per patient., Hx Pacemaker - Pacemaker/defibrillator defibrillator - Immunizations Immunizations up to date: Yes Hx Diphtheria, Pertussis, Tetanus Vaccination: Yes Physical Exam - General General appearance: Appears well, Alert - Abdominal Inspection: Morbidly Obese Tenderness: Tender - Left lateral side tenderness, exam limited as patient is in chair - Vital signs Vitals: Temp Pulse Resp BP Pulse Ox 100.5 F H 103 H 20 70/43 L 97 02/11/20 12:59 02/11/20 12:59 02/11/20 12:59 02/11/20 12:59 02/11/20 12:59 Course - Vital Signs Vital signs: Temp Pulse Resp BP Pulse Ox 100.5 F H 103 H 20 70/43 L 97 02/11/20 12:59 02/11/20 12:59 02/11/20 12:59 02/11/20 12:59 02/11/20 12:59 Doctor's Discharge - Discharge Referrals: NICOLE BROWN MD [Primary Care Provider] - Follow up as needed
--- NOTE | 2020-02-11 13:38 | ER Document Report ---
ED Respiratory Problem - General Chief Complaint: Fever Stated Complaint: COUGH Time Seen by Provider: 02/11/20 13:09 Primary Care Provider: NICOLE BROWN MD [NO LOCAL MD] - Follow up as needed Mode of Arrival: Wheelchair Information source: Patient Notes: Suleman MONGE notes Patient presents complaining of bringing up mucus and phlegm and having left side abdominal pain with a fever of 103 yesterday. Patient denies any cough or vomiting. Patient denies any nausea vomiting or diarrhea. Patient does have congestive heart failure and has an LVAD. Patient denies being around anyone who is been sick recently although is requesting a COVID test. my notes 49-year-old black female arrives by POV with chief complaint of having 3 days of productive cough which is loosening after 24 hours on Mucinex and [place] fadi. Patient reports she is lost 30 pounds over the summer taking care of her 3 grandchildren ages 10 years old 5 years old and 3 years old. She reports these children are not sick at this time. She went last week to her personal doctor to get some blood work drawn. She sees a Dr. Smalls for heart transplant list at [facility] and she would like them called. Patient has a pacemaker defibrillator LVAD and a history of CHF A. fib and hypercholesterolemia since 2005. This occurred after her mother from [place] at age 58. Her father from cancer when she was 15 years old in [place]. Patient used to smoke 1 pack cigarettes daily and she smoked until 5 years ago. Patient met she has headache and chills and has been taking Tylenol for her fever. Otherwise she says she has a good appetite and no problems with bowel movements or dysuria. She says her blood pressure usually runs 98 systolic. Today it is running 70/43 with tachycardia 103 and 100.5 temperature on triage. Patient requested COVID-19 test and one was ordered. Alla Servin from LVAD coordinator advises Vero RN rehabilitation supervisor today that the patient's INR last week on 02 February was 3.7 patient is on Coumadin. I spoke with Alla around 1420 and she advises the patient spoke with her around 1100 and told her she has the worst headache of her life. Also she advises no more than 500 mL of IV fluid replacement for now. TRAVEL OUTSIDE OF THE U.S. IN LAST 30 DAYS: No - HPI Patient complains to provider of: CHF, Cough Onset: Other - x 3 days Initiating Event: Exertion - taking care of grandkids this summer Quality of pain: No pain Severity: Mild Pain Level: 1 Context: Hx CHF Short of Breath: Mild - full sentences Cough: Productive Sputum amount: Small - Related Data Allergies/Adverse Reactions: amoxicillin [Amoxicillin] Allergy (Verified 07/15/19 10:34) Penicillins Allergy (Verified 07/15/19 10:34) Past Medical History - General Information source: Patient - Social History Smoking Status: Former Smoker Cigarette use (# per day): No Chew tobacco use (# tins/day): No Smoking Education Provided: No Frequency of alcohol use: None Drug Abuse: None Lives with: Family Family History: Reviewed & Not Pertinent Patient has suicidal ideation: No Patient has homicidal ideation: No - Past Medical History Cardiac Medical History: Reports: Hx Atrial Fibrillation, Hx Congestive Heart Failure, Hx Hypercholesterolemia Neurological Medical History: Denies: Hx Cerebrovascular Accident Endocrine Medical History: Reports: Hx Diabetes Mellitus Type 2 Renal/ Medical History: Denies: Hx Peritoneal Dialysis Past Surgical History: Reports: Hx Abdominal Surgery - CHOLECYSTECTOMY, Hx Cardiac Surgery - LVAD, Hx Section, Hx Cholecystectomy, Hx Hysterectomy, Hx Internal Defibrillator - secondary to bradycardia, per patient., Hx Pacemaker - Pacemaker/defibrillator defibrillator - Immunizations Immunizations up to date: Yes Hx Diphtheria, Pertussis, Tetanus Vaccination: Yes Review of Systems - Review of Systems Constitutional: See HPI, Fever, Malaise, Weakness, Weight loss, Recent illness EENT: No symptoms reported Cardiovascular: No symptoms reported Respiratory: See HPI, Cough, Sputum Gastrointestinal: No symptoms reported Genitourinary: No symptoms reported Female Genitourinary: No symptoms reported Musculoskeletal: No symptoms reported Skin: No symptoms reported Hematologic/Lymphatic: No symptoms reported Neurological/Psychological: No symptoms reported Physical Exam - Vital signs Vitals: Temp Pulse Resp BP Pulse Ox 100.5 F H 103 H 20 70/43 L 97 02/11/20 12:59 02/11/20 12:59 02/11/20 12:59 02/11/20 12:59 02/11/20 12:59 Interpretation: Hypotensive, Tachycardic, Febrile - General General appearance: Alert In distress: Mild - HEENT Head: Normocephalic, Atraumatic Eyes: Normal Pupils: PERRL Nasal: Normal Mouth/Lips: Normal Pharynx: Normal Neck: Normal - Respiratory Respiratory status: No respiratory distress Chest status: Nontender Breath sounds: Normal Chest palpation: Normal - Cardiovascular Rhythm: Regular Heart sounds: Normal auscultation Murmur: No - Abdominal Inspection: Normal Distension: No distension Bowel sounds: Normal Tenderness: Nontender Organomegaly: No organomegaly - Rectal Hemorrhoids: Other - deferred - Genitourinary Bimanuel exam: Other - deferred - Back Back: Normal - Extremities General upper extremity: Normal inspection General lower extremity: Normal inspection - Neurological Neuro grossly intact: Yes Cognition: Normal Orientation: AAOx4 [place] Coma Scale Eye Opening: Spontaneous Jose Coma Scale Verbal: Oriented Jose Coma Scale Motor: Obeys Commands [place] Coma Scale Total: 15 Speech: Normal Motor strength normal: LUE, RUE, LLE, RLE Sensory: Normal - Psychological Associated symptoms: Normal affect - Skin Skin Temperature: Warm Skin Moisture: Dry Course - Vital Signs Vital signs: Temp Pulse Resp BP Pulse Ox 99.7 F 103 H 27 H 70/43 L 94 02/11/20 17:00 02/11/20 12:59 02/11/20 17:00 02/11/20 12:59 02/11/20 16:00 - Laboratory Result Diagrams: 02/11/20 14:00 02/11/20 14:00 Laboratory results interpreted by me: 02/11/20 02/11/20 02/11/20 14:00 14:00 14:00 WBC 11.3 H Hgb 10.1 L Hct 32.1 L MCV 72 L MCH 22.7 L MCHC 31.4 L RDW 22.3 H Lymph % (Auto) 9.4 L Absolute Neuts (auto) 9.6 H Seg Neutrophils % 84.4 H PT 30.7 H Sodium 134.1 L Potassium 3.2 L Glucose 230 H Total Bilirubin 1.5 H - Diagnostic Test Radiology reviewed: Reports reviewed Radiology results interpreted by me: 02/11/20 16:[address] head with nad old infarcts L frontal and r parietal lobe - EKG Interpretation by Me EKG shows normal: Sinus rhythm Rhythm: Other - pacer rhythm Critical Care Note - Critical Care Note Comments: Patient states he has a history of I spoke with Alla at [facility] transplant area for possible transfer for this patient. This was shortly upon arrival and also at 1610. I spoke with Heather rehabilitation supervisor and she advises we cannot use a coronavirus test if the patient is being transferred to [facility]. I then spoke with administration Elysia arenas who advises she will speak with Heather the rehabilitation supervisor about this. Heather rehabilitation supervisor called back around 1730 and advises that she spoke with [facility] about this case. They will except if coronavirus is positive and not if coronavirus is negative. Patient advises herself that she would not stay in the hospital and wants to go home. Therefore after discussing this with everyone we advised patient to sign out AMA. Jodee CARRIZALES her nurse also knows about this as well. Discharge - Discharge Clinical Impression: Cough, Heart disease, Pre-heart transplant, listed Fever Qualifiers: Fever type: unspecified Qualified Code(s): R50.9 - Fever, unspecified Headache Qualifiers: Headache type: unspecified Headache chronicity pattern: acute headache Intractability: not intractable Qualified Code(s): R51 - Headache Disposition: AGAINST MEDICAL ADVICE Additional Instructions: Follow-up with Alla your advisor at [facility] by telephone. Return to ER as symptoms progress or worsen. Take medicines as directed. Encourage fluids but keep them under 1/2 quart daily because of your CHF and LVAD. Prescriptions: Levofloxacin [Levaquin 500 mg Tablet] 500 mg PO DAILY #7 tablet Referrals: NICOLE BROWN MD [NO LOCAL MD] - Follow up as needed
[2020-02-11] MEDS ORDERED: NORMAL SALINE 500 ML IV ONE (14:22)
[2020-02-11 14:25] LABS: ABSOLUTE LYMPHOCYTES (AUTO) 1.1 10^3/uL (0.5-4.7); ABSOLUTE MONOCYTES (AUTO) 0.7 10^3/uL (0.1-1.4); ABSOLUTE NEUT (AUTO) 9.6 10^3/uL (1.7-8.2); BASOPHILS % (AUTO) 0.2 % (0-2); EOSINOPHILS % (AUTO) 0.1 % (0-6); HEMATOCRIT 32.1 % (36.0-47.0); HEMOGLOBIN 10.1 g/dL (12.0-15.5); LYMPHOCYTES % (AUTO) 9.4 % (13-45); MEAN CORPUSCULAR HEMOGLOBIN 22.7 pg (27.0-33.4); MEAN CORPUSCULAR HGB CONC 31.4 g/dL (32.0-36.0); MEAN CORPUSCULAR VOLUME 72 fl (80-97); MONOCYTES % (AUTO) 5.9 % (3-13); PLATELET COUNT 254 10^3/uL (150-450); RED BLOOD COUNT 4.45 10^6/uL (3.72-5.28); RED CELL DISTRIBUTION WIDTH 22.3 % (11.5-14.0); SEGMENTED NEUTROPHILS % (AUTO) 84.4 % (42-78); TOTAL CELLS COUNTED % (AUTO) 100 %; VENOUS BLOOD BASE EXCESS -0.7 mmol/L; VENOUS BLOOD HCO3 23.4 mmol/L (20-32); VENOUS BLOOD PCO2 37.3 mmHg (35-63); VENOUS BLOOD PH 7.42 (7.30-7.42); WHITE BLOOD COUNT 11.3 10^3/uL (4.0-10.5)
[2020-02-11 14:33] LABS: INTERNATIONAL RATION (INR) 2.87; PROTHROMBIN TIME 30.7 SEC (11.4-15.4)
--- NOTE | 2020-02-11 14:40 | RADIOLOGY REPORT (SQ) ---
EXAM DESCRIPTION: CHEST SINGLE VIEW IMAGES COMPLETED DATE/TIME: 02/11/2020 2:27 pm REASON FOR STUDY: fever COMPARISON: 07/26/2016 EXAM PARAMETERS: NUMBER OF VIEWS: One view. TECHNIQUE: Single frontal radiographic view of the chest acquired. RADIATION DOSE: NA LIMITATIONS: None. FINDINGS: LUNGS AND PLEURA: No opacities, masses or pneumothorax. No pleural effusion. MEDIASTINUM AND HILAR STRUCTURES: No masses. Contour normal. HEART AND VASCULAR STRUCTURES: Heart remains enlarged. No overt failure. BONES: No acute findings. HARDWARE: Unchanged. OTHER: No other significant finding. IMPRESSION: No interval change in the chest. Cardiomegaly. Hardware is unchanged. TECHNICAL DOCUMENTATION: JOB ID: [id number] 2010 [employer]- All Rights Reserved Reading location - IP/workstation name: [email or web address]
[2020-02-11 14:48] LABS: ALBUMIN 3.6 g/dL (3.5-5.0); ALKALINE PHOSPHATASE 124 U/L (38-126); ANION GAP 11 (5-19); ASPARTATE AMINO TRANSFERASE 36 U/L (14-36); BILIRUBIN,DIRECT 0.3 mg/dL (0.0-0.4); BILIRUBIN,TOTAL 1.5 mg/dL (0.2-1.3); BLOOD UREA NITROGEN 9 mg/dL (7-20); CALCIUM 8.6 mg/dL (8.4-10.2); CARBON DIOXIDE 24 mmol/L (22-30); CHLORIDE 99 mmol/L (98-107); GLUCOSE 230 mg/dL (75-110); POTASSIUM 3.2 mmol/L (3.6-5.0); TOTAL PROTEIN 7.7 g/dL (6.3-8.2)
[2020-02-11] MEDS ORDERED: VANCOMYCIN HCL INJ 1000 MG VIAL IV ONE (15:02)
[2020-02-11] MEDS ORDERED: DEXAMETHASONE SOD PHOS INJ 10 MG/1 ML VIAL IV ONE (15:03)
--- NOTE | 2020-02-11 15:26 | RADIOLOGY REPORT (SQ) ---
EXAM DESCRIPTION: CT HEAD WITHOUT IMAGES COMPLETED DATE/TIME: 02/11/2020 3:15 pm REASON FOR STUDY: kelley COMPARISON: 03/17/2019 TECHNIQUE: Axial images acquired through the brain without intravenous contrast. Images reviewed wi th bone, brain and subdural windows. Additional sagittal and coronal reconstructions were generated. Images stored on PACS. All CT scanners at this facility use dose modulation, iterative reconstruction, and/or weight based d osing when appropriate to reduce radiation dose to as low as reasonably achievable (ALARA). [facility]: Dose Right [facility]: CareDose [facility]: Dose Right [facility]: Teradose 4D [facility]: Pixlee RADIATION DOSE: CT Rad equipment meets quality standard of care and radiation dose reduction techniq ues were employed. CTDIvol: 53.2 mGy. DLP: 991 mGy-cm. mGy. LIMITATIONS: None. FINDINGS: VENTRICLES: Normal size and contour. CEREBRUM: No masses. No hemorrhage. No midline shift. No evidence for acute infarction. 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 Focal area of encephalomalacia in the right posterior p arietal lobe as well also unchanged. CEREBELLUM: No masses. No hemorrhage. No alteration of density. No evidence for acute infarction. EXTRAAXIAL SPACES: No fluid collections. No masses. ORBITS AND GLOBE: No intra- or extraconal masses. Normal contour of globe without masses. CALVARIUM: No fracture. PARANASAL SINUSES: No fluid or mucosal thickening. SOFT TISSUES: No mass or hematoma. OTHER: No other significant finding. IMPRESSION: Focal old infarcts in the left frontal lobe and right anterior parietal lobe. No acute intracranial event. EVIDENCE OF ACUTE STROKE: NO. COMMENT: Quality ID # [id number]: Final reports with documentation of one or more dose reduction techniques (e.g., Automated exposure control, adjustment of the mA and/or kV according to patient size, use of iterative reconstruction technique) TECHNICAL DOCUMENTATION: JOB ID: [id number] 2010 [employer]- All Rights Reserved Reading location - IP/workstation name: [email or web address]
[2020-02-11] MEDS ORDERED: LEVOFLOXACIN 750 MG/D5W RTU 750 MG/150 ML RTUPB IV ONE (16:00)
[2020-02-11 18:44] LABS: APPEARANCE,URINE CLOUDY; BILIRUBIN,URINE NEGATIVE (NEGATIVE); COLOR,URINE AMBER; GLUCOSE, URINE NEGATIVE (NEGATIVE); KETONES,URINE NEGATIVE (NEGATIVE); PROTEIN,URINE 100 mg/dL (NEGATIVE); URINE SPECIFIC GRAVITY 1.018; UROBILINOGEN,URINE NEGATIVE mg/dL (<2.0)
--- NOTE | 2020-02-12 09:25 | EKG REPORT ---
SEVERITY:- ABNORMAL ECG - SINUS RHYTHM NONSPECIFIC IVCD WITH LAD LVH WITH SECONDARY REPOLARIZATION ABNORMALITY : Confirmed by: Alessandra Gutiérrez 12-Feb-2020 09:25:05
--- NOTE | 2020-02-12 16:21 | ER Document Report ---
Doctor's Note Notes: 02/12/20 16:17 A pharmacy called and was put through to me to discuss the patient's medications. She was prescribed Levaquin last night. She is on Coumadin. After hearing the history, and reviewing the chart, I realized that 1 of the nurses that handles the culture reports had been through the ER doc box earlier talking with 1 of the other providers about this patient's case. She had positive blood cultures on both tubes last night and it appears that will be a staph aureus. I did contact Rox Valdez RN, she reports she had instructed the patient to go to [facility], or to call her piano case maker. This was done because if she needed to be at [facility], coming to our ER may make it very difficult to get transferred as most facilities are full and refusing transfers frequently. I did tell the pharmacist not to fill the Levaquin, but to contact the patient and ensure that she did speak with her doctors at [facility]. If they wanted her to come to [facility] she could do that, if they want her to come to our emergency room she could do that, if they want to call in a prescription for an appropriate antibiotic they could do that. 40 minutes after the pharmacy call me, I was able to speak with Rox Valdez RN to confirm that she had spoken with the patient.
== END 2020-02-11 20:49 | disposition left against medical advice (07) ==
LOC: ER 12:45
DX: R50.9 Fever, unspecified (principal); R05 Cough; R51 Headache; Z76.82 Awaiting organ transplant status; R10.9 Unspecified abdominal pain; I50.9 Heart failure, unspecified; Z95.810 Presence of automatic (implantable) cardiac defibrillator; Z95.811 Presence of heart assist device; Z87.891 Personal history of nicotine dependence; E11.9 Type 2 diabetes mellitus without complications; I25.10 Atherosclerotic heart disease of native coronary artery without angina pectoris; Z20.828 Contact with and (suspected) exposure to other viral communicable diseases
CPT/HCPCS: 93005; 99284; 96375; 96365; 96366; 96367; 36415; 87040; 87086; 83605; 83690; 85025; 85610; 87635; 87077; 80053; 81001; 87186; 82803; 87150 ×26; 71045; 70450; 93010; J3490; J3370; J1100; J1956; C9803

== ENCOUNTER 2020-02-12 20:36 | Emergency (ER) | payer MEDICAID ==
--- NOTE | 2020-02-12 21:12 | ER Document Report ---
ED Medical Screen (RME) - General Chief Complaint: Abnormal Lab Results Stated Complaint: LVAD FROM [place] Time Seen by Provider: 02/12/20 21:07 Primary Care Provider: MARCELO TANG PA-C [Primary Care Provider] - Follow up as needed Mode of Arrival: Wheelchair Information source: Patient Notes: 49-year-old female presented to ED for 2+ blood cultures yesterday. She states she actually feels better than she has in a long time. She states she is not had any fever since yesterday. She states she has been taking her medications. She states she thinks she got Levaquin IV yesterday in the emergency room. She does have an LVAD and is supposed to go to [place] for the LVAD complications. She states she does not smoke drink or do any drugs. I have sp oken with the charge nurse. She states she will get her into room 6 as she has a covered test pending. I have greeted and performed a rapid initial assessment of this patient. A comprehensive ED assessment and evaluation of the patient, analysis of test results and completion of medical decision making process will be conducted by an additional ED providers. TRAVEL OUTSIDE OF THE U.S. IN LAST 30 DAYS: No - Related Data Allergies/Adverse Reactions: amoxicillin [Amoxicillin] Allergy (Verified 07/15/19 10:34) Penicillins Allergy (Verified 07/15/19 10:34) Past Medical History - Past Medical History Cardiac Medical History: Reports: Hx Atrial Fibrillation, Hx Congestive Heart Failure, Hx Hypercholesterolemia Neurological Medical History: Denies: Hx Cerebrovascular Accident Endocrine Medical History: Reports: Hx Diabetes Mellitus Type 2 Renal/ Medical History: Denies: Hx Peritoneal Dialysis Past Surgical History: Reports: Hx Abdominal Surgery - CHOLECYSTECTOMY, Hx Cardiac Surgery - LVAD, Hx Section, Hx Cholecystectomy, Hx Hysterectomy, Hx Internal Defibrillator - secondary to bradycardia, per patient., Hx Pacemaker - Pacemaker/defibrillator defibrillator - Immunizations Immunizations up to date: Yes Hx Diphtheria, Pertussis, Tetanus Vaccination: Yes Physical Exam - Vital signs Vitals: Temp Pulse Resp Pulse Ox 97.6 F 77 17 100 02/12/20 20:47 02/12/20 20:47 02/12/20 20:47 02/12/20 20:47 Course - Vital Signs Vital signs: Temp Pulse Resp BP Pulse Ox 97.6 F 77 17 100 02/12/20 20:47 02/12/20 20:47 02/12/20 20:47 02/12/20 20:47 Doctor's Discharge - Discharge Referrals: MARCELO TANG PA-C [Primary Care Provider] - Follow up as needed
[2020-02-12] MEDS ORDERED: CEFEPIME 2 GM/D5W RTU 2 GM/50 ML RTUPB IV ONE (22:38)
[2020-02-12] MEDS ORDERED: VANCOMYCIN HCL INJ 1000 MG VIAL IV ONE (22:41)
--- NOTE | 2020-02-12 22:55 | ER Document Report ---
ED General - General Chief Complaint: Abnormal Lab Results Stated Complaint: LVAD FROM [place] Time Seen by Provider: 02/12/20 21:07 Primary Care Provider: MARCELO TANG PA-C [Primary Care Provider] - Follow up as needed Mode of Arrival: Wheelchair TRAVEL OUTSIDE OF THE U.S. IN LAST 30 DAYS: No - HPI Notes: 49-year-old female history of severe CHF with LVAD placed 5 years ago on heart transplant list, diabetes, atrial fibrillation presents with positive blood cultures. Patient was seen in ED yesterday, patient came to ED because she had a fever. Patient did not have any specific symptoms associated with a fever other than a mild diffuse headache without any neck pain or stiffness which is since resolved. Previous note from that visit says cough was chief complaint but patient denies ever having any cough with these presentations. Patient had blood cultures drawn and was going to be transferred to [facility] but then patient did not want to stay in the hospital because she felt better and she was discharged AGAINST MEDICAL ADVICE. Since yesterday blood cultures have grown MSSA and patient was recalled back to the ED. Patient says that she has felt well since discharge, denies having any other fevers, denies any antipyretics today. Patient denies any cough, chest pain, dizziness, syncope, pain around the LVAD site, abdominal pain, urinary symptoms, vaginal symptoms, recent procedures - Related Data Allergies/Adverse Reactions: amoxicillin [Amoxicillin] Allergy (Verified 02/13/20 01:38) Penicillins Allergy (Verified 02/13/20 01:38) Past Medical History - General Information source: Patient - Social History Smoking Status: Former Smoker Family History: Reviewed & Not Pertinent Patient has homicidal ideation: No - Past Medical History Cardiac Medical History: Reports: Hx Atrial Fibrillation, Hx Congestive Heart Failure, Hx Hypercholesterolemia Neurological Medical History: Denies: Hx Cerebrovascular Accident Endocrine Medical History: Reports: Hx Diabetes Mellitus Type 2 Renal/ Medical History: Denies: Hx Peritoneal Dialysis Past Surgical History: Reports: Hx Abdominal Surgery - CHOLECYSTECTOMY, Hx Cardiac Surgery - LVAD, Hx Section, Hx Cholecystectomy, Hx Hysterectomy, Hx Internal Defibrillator - secondary to bradycardia, per patient., Hx Pacemaker - Pacemaker/defibrillator defibrillator - Immunizations Immunizations up to date: Yes Hx Diphtheria, Pertussis, Tetanus Vaccination: Yes Review of Systems - Review of Systems Notes: REVIEW OF SYSTEMS: CONSTITUTIONAL : Denies fever, chills, or sweats. EENT: Denies recent cold/sinus symptoms, denies throat pain CARDIOVASCULAR: Denies chest pain, DIAMOND RESPIRATORY: Denies cough, denies shortness of breath. GASTROINTESTINAL: Denies abdominal pain, nausea/vomiting. GENITOURINARY: Denies difficulty urinating, painful urination. FEMALE GENITOURINARY: Denies abnormal vaginal bleeding, vaginal discharge. MUSCULOSKELETAL: Denies neck pain, back pain. SKIN: Denies rash or skin lesions. HEMATOLOGIC : Denies easy bruising or bleeding. LYMPHATIC: Denies swollen, enlarged glands. NEUROLOGICAL: Denies headache, denies change in gait. PSYCHIATRIC: Denies anxiety or stress or depression. Physical Exam - Vital signs Vitals: Temp Pulse Resp Pulse Ox 97.6 F 77 17 100 02/12/20 20:47 02/12/20 20:47 02/12/20 20:47 02/12/20 20:47 - Notes Notes: PHYSICAL EXAMINATION: GENERAL: Well-appearing, well-nourished and in no acute distress. HEAD: Atraumatic, normocephalic. EYES: Pupils equal round and appropriate constriction, sclera anicteric, conjunctiva are normal. ENT: nares patent, moist mucous membranes. NECK: Normal range of motion, supple without lymphadenopathy LUNGS: Breath sounds clear to auscultation bilaterally and equal. No wheezes rales or rhonchi. Normal respiratory rate and effort HEART: Regular rate, no pulse, AICD palpable in upper left chest nontender with normal overlying skin, LVAD with clean dressing without any tenderness or overlying skin abnormalities, cap refill less than 2 seconds distally, healed nontender thoracotomy scar. ABDOMEN: Soft, nontender, no guarding, no masses, no CVAT EXTREMITIES: Normal range of motion, no pitting or edema. No cyanosis. NEUROLOGICAL: Awake, alert, conversing appropriately, moves all extremities spontaneously. PSYCH: Normal mood, normal affect. SKIN: Warm, Dry, normal turgor, no rashes or lesions noted. Course - Re-evaluation Re-evalutation: 02/12/20 22:53 Patient with positive blood cultures without any other attributable source concerning for bacteremia with LVAD as possible source. Patient very well- appearing, currently asymptomatic, vital signs normal for LVAD patient, no signs of hypoperfusion, no signs of hypo-or hypervolemia. No sensitivities as cultures grew MSSA, will give cefepime first dose for coverage but will likely be de-escalated later by outside facility. I have contacted patient's home facility [facility] for transfer. Patient stable pending acceptance by outside facility. 02/13/20 00:29 Patient not yet given antibiotics, discussed with nurse Remy who will be giving him shortly. Patient continues to feel well, no change in physical exam, I obtained Doppler map of 90 02/13/20 01:55 EMS crew currently here for patient, patient continues to feel well, no change from original exam, patient has batteries for LVAD and is currently changing them with assistance of EMS crew. Patient remains appropriate for transfer at this time. - Vital Signs Vital signs: Temp Pulse Resp BP Pulse Ox 99.1 F 77 21 H 74/63 L 97 02/13/20 01:03 02/12/20 20:47 02/13/20 01:03 02/13/20 01:03 02/13/20 01:03 - Laboratory Result Diagrams: 02/12/20 22:56 02/12/20 22:56 Laboratory results interpreted by me: 02/12/20 02/12/20 02/12/20 22:56 22:56 22:56 WBC 11.2 H Hgb 9.5 L Hct 29.8 L MCV 72 L MCH 22.9 L MCHC 31.8 L RDW 21.6 H Lymph % (Auto) 8.8 L Absolute Neuts (auto) 9.2 H Seg Neutrophils % 82.5 H PT 35.3 H APTT 63.3 H Sodium 134.1 L Potassium 3.5 L Glucose 349 H AST 51 H Albumin 3.3 L Critical Care Note - Critical Care Note Total time excluding time spent on procedures (mins): 35 - Spent time reassessing and communicating with specialist regarding care for septic LVAD patient. Discharge - Discharge Clinical Impression: Bacteremia, LVAD (left ventricular assist device) present Condition: Good Disposition: [facility] Referrals: MARCELO TANG PA-C [Primary Care Provider] - Follow up as needed
[2020-02-12 23:11] LABS: ABSOLUTE BASOPHILS # (AUTO) 0.1 10^3/uL (0.0-0.2); ABSOLUTE MONOCYTES (AUTO) 0.9 10^3/uL (0.1-1.4); ABSOLUTE NEUT (AUTO) 9.2 10^3/uL (1.7-8.2); BASOPHILS % (AUTO) 0.6 % (0-2); HEMATOCRIT 29.8 % (36.0-47.0); HEMOGLOBIN 9.5 g/dL (12.0-15.5); LYMPHOCYTES % (AUTO) 8.8 % (13-45); MEAN CORPUSCULAR HEMOGLOBIN 22.9 pg (27.0-33.4); MEAN CORPUSCULAR HGB CONC 31.8 g/dL (32.0-36.0); MEAN CORPUSCULAR VOLUME 72 fl (80-97); MONOCYTES % (AUTO) 8.1 % (3-13); PLATELET COUNT 283 10^3/uL (150-450); RED BLOOD COUNT 4.12 10^6/uL (3.72-5.28); RED CELL DISTRIBUTION WIDTH 21.6 % (11.5-14.0); SEGMENTED NEUTROPHILS % (AUTO) 82.5 % (42-78); TOTAL CELLS COUNTED % (AUTO) 100 %; WHITE BLOOD COUNT 11.2 10^3/uL (4.0-10.5)
[2020-02-12 23:19] LABS: INTERNATIONAL RATION (INR) 3.42; PROTHROMBIN TIME 35.3 SEC (11.4-15.4)
[2020-02-12 23:20] LABS: PARTIAL THROMBOPLASTIN TIME 63.3 SEC (23.5-35.8)
[2020-02-12 23:29] LABS: ALBUMIN 3.3 g/dL (3.5-5.0); ALKALINE PHOSPHATASE 119 U/L (38-126); ANION GAP 8 (5-19); ASPARTATE AMINO TRANSFERASE 51 U/L (14-36); BILIRUBIN,DIRECT 0.2 mg/dL (0.0-0.4); BILIRUBIN,TOTAL 0.7 mg/dL (0.2-1.3); BLOOD UREA NITROGEN 19 mg/dL (7-20); CALCIUM 9.1 mg/dL (8.4-10.2); CARBON DIOXIDE 24 mmol/L (22-30); CHLORIDE 102 mmol/L (98-107); GLUCOSE 349 mg/dL (75-110); POTASSIUM 3.5 mmol/L (3.6-5.0); TOTAL PROTEIN 7.1 g/dL (6.3-8.2)
[2020-02-13 01:40] VITALS: BP 74/63
== END 2020-02-13 02:29 | disposition short-term general hospital (02) ==
LOC: ER 20:36
DX: A49.01 Methicillin susceptible Staphylococcus aureus infection, unspecified site (principal); I50.9 Heart failure, unspecified; E11.9 Type 2 diabetes mellitus without complications; Z95.810 Presence of automatic (implantable) cardiac defibrillator; I48.91 Unspecified atrial fibrillation
CPT/HCPCS: 99284; 86900; 86901; 36415; 87040; 86850; 85025; 85610; 85730; 87077; 80053; 87186; 87150 ×26; J0692

== ENCOUNTER → 2020-05-07 | Outpatient (CLI) | payer MEDICAID | LOC: OD 10:44 | PROVIDERS: ATTEND Internal Medicine Advanced Heart Failure and Transplant Cardiology | DX: I50.9 Heart failure, unspecified (principal); Z79.01 Long term (current) use of anticoagulants; Z79.899 Other long term (current) drug therapy; Z95.811 Presence of heart assist device | CPT/HCPCS: 36415; 87040 ==

== ENCOUNTER → 2020-06-28 | Outpatient (CLI) | payer MEDICAID ==
[2020-06-28 08:28] LABS: HEMATOCRIT 29.1 % (36.0-47.0); HEMOGLOBIN 8.9 g/dL (12.0-15.5); MEAN CORPUSCULAR HEMOGLOBIN 23.1 pg (27.0-33.4); MEAN CORPUSCULAR HGB CONC 30.7 g/dL (32.0-36.0); MEAN CORPUSCULAR VOLUME 75 fl (80-97); PLATELET COUNT 201 10^3/uL (150-450); RED BLOOD COUNT 3.88 10^6/uL (3.72-5.28); WHITE BLOOD COUNT 7.4 10^3/uL (4.0-10.5)
[2020-06-28 08:34] LABS: INTERNATIONAL RATION (INR) 1.28; PROTHROMBIN TIME 16.2 SEC (11.4-15.4)
[2020-06-28 08:50] LABS: ANION GAP 11 (5-19); BLOOD UREA NITROGEN 11 mg/dL (7-20); CARBON DIOXIDE 22 mmol/L (22-30); CHLORIDE 104 mmol/L (98-107); GLUCOSE 284 mg/dL (75-110); POTASSIUM 3.8 mmol/L (3.6-5.0)
== END ==
LOC: OD 07:50
PROVIDERS: ATTEND Internal Medicine Advanced Heart Failure and Transplant Cardiology
DX: I50.9 Heart failure, unspecified (principal); Z79.01 Long term (current) use of anticoagulants; Z79.899 Other long term (current) drug therapy; Z95.811 Presence of heart assist device
CPT/HCPCS: 36415; 80048; 85027; 85610

== ENCOUNTER → 2020-07-19 | Outpatient (CLI) | payer MEDICAID ==
[2020-07-19 16:14] LABS: INTERNATIONAL RATION (INR) 1.62; PROTHROMBIN TIME 19.4 SEC (11.4-15.4)
[2020-07-19 16:25] LABS: ANION GAP 8 (5-19); BLOOD UREA NITROGEN 11 mg/dL (7-20); CALCIUM 8.7 mg/dL (8.4-10.2); CARBON DIOXIDE 25 mmol/L (22-30); CHLORIDE 105 mmol/L (98-107); GLUCOSE 222 mg/dL (75-110)
== END ==
LOC: OD 15:24
PROVIDERS: ATTEND Internal Medicine Advanced Heart Failure and Transplant Cardiology
DX: I50.9 Heart failure, unspecified (principal); Z79.01 Long term (current) use of anticoagulants; Z79.899 Other long term (current) drug therapy; Z95.811 Presence of heart assist device
CPT/HCPCS: 36415; 80048; 85610

== ENCOUNTER → 2020-08-02 | Outpatient (CLI) | payer MEDICAID ==
[2020-08-02 16:36] LABS: HEMATOCRIT 26.1 % (36.0-47.0); HEMOGLOBIN 8.2 g/dL (12.0-15.5); MEAN CORPUSCULAR HEMOGLOBIN 21.3 pg (27.0-33.4); MEAN CORPUSCULAR HGB CONC 31.4 g/dL (32.0-36.0); MEAN CORPUSCULAR VOLUME 68 fl (80-97); PLATELET COUNT 247 10^3/uL (150-450); RED BLOOD COUNT 3.85 10^6/uL (3.72-5.28); RED CELL DISTRIBUTION WIDTH 21.7 % (11.5-14.0); WHITE BLOOD COUNT 7.7 10^3/uL (4.0-10.5)
[2020-08-02 16:40] LABS: INTERNATIONAL RATION (INR) 1.66; PROTHROMBIN TIME 19.7 SEC (11.4-15.4)
[2020-08-02 16:50] LABS: ANION GAP 8 (5-19); BLOOD UREA NITROGEN 9 mg/dL (7-20); CALCIUM 8.6 mg/dL (8.4-10.2); CARBON DIOXIDE 28 mmol/L (22-30); CHLORIDE 100 mmol/L (98-107); GLUCOSE 184 mg/dL (75-110); POTASSIUM 3.3 mmol/L (3.6-5.0)
== END ==
LOC: OD 14:45
PROVIDERS: ATTEND Internal Medicine Advanced Heart Failure and Transplant Cardiology
DX: I50.9 Heart failure, unspecified (principal); Z79.01 Long term (current) use of anticoagulants; Z79.899 Other long term (current) drug therapy; Z95.811 Presence of heart assist device
CPT/HCPCS: 36415; 80048; 85027; 85610

== ENCOUNTER → 2020-08-06 | Outpatient (CLI) | payer MEDICAID ==
[2020-08-06 15:46] LABS: ABSOLUTE EOSINOPHILS # (AUTO) 0.1 10^3/uL (0.0-0.6); ABSOLUTE LYMPHOCYTES (AUTO) 1.7 10^3/uL (0.5-4.7); ABSOLUTE MONOCYTES (AUTO) 0.6 10^3/uL (0.1-1.4); ABSOLUTE NEUT (AUTO) 3.9 10^3/uL (1.7-8.2); BASOPHILS % (AUTO) 0.7 % (0-2); EOSINOPHILS % (AUTO) 1.2 % (0-6); HEMOGLOBIN 8.1 g/dL (12.0-15.5); MEAN CORPUSCULAR HEMOGLOBIN 21.1 pg (27.0-33.4); MEAN CORPUSCULAR HGB CONC 31.1 g/dL (32.0-36.0); MEAN CORPUSCULAR VOLUME 68 fl (80-97); PLATELET COUNT 224 10^3/uL (150-450); RED BLOOD COUNT 3.84 10^6/uL (3.72-5.28); RED CELL DISTRIBUTION WIDTH 21.7 % (11.5-14.0); SEGMENTED NEUTROPHILS % (AUTO) 62.1 % (42-78); TOTAL CELLS COUNTED % (AUTO) 100 %; WHITE BLOOD COUNT 6.3 10^3/uL (4.0-10.5)
[2020-08-06 15:54] LABS: INTERNATIONAL RATION (INR) 1.85; PROTHROMBIN TIME 21.4 SEC (11.4-15.4)
[2020-08-06 16:04] LABS: ANION GAP 10 (5-19); BLOOD UREA NITROGEN 10 mg/dL (7-20); CALCIUM 9.2 mg/dL (8.4-10.2); CARBON DIOXIDE 25 mmol/L (22-30); CHLORIDE 102 mmol/L (98-107); GLUCOSE 292 mg/dL (75-110); POTASSIUM 3.8 mmol/L (3.6-5.0)
== END ==
LOC: OD 15:19
PROVIDERS: ATTEND Internal Medicine Advanced Heart Failure and Transplant Cardiology
DX: I50.9 Heart failure, unspecified (principal); Z79.01 Long term (current) use of anticoagulants; Z79.899 Other long term (current) drug therapy; Z95.811 Presence of heart assist device
CPT/HCPCS: 36415; 80048; 85025; 85610